=== PATIENT | female | born 1995 | race Caucasian/White ===

== ENCOUNTER → 2024-01-08 16:05 | Outpatient (REF) | payer OTHER, SELFPAY | LOC: RAD 16:05 | PROVIDERS: ATTENDING PHYSICIAN Obstetrics & Gynecology; FAMILY PHYSICIAN Family Medicine | DX: O26.851 Spotting complicating pregnancy, first trimester (principal) | CPT/HCPCS: 76801 ==

== ENCOUNTER 2024-01-18 06:34 | Day surgery (SDC) | payer OTHER, SELFPAY ==
[2024-01-18] VITALS (14 sets, daily range): BP systolic 76–119; BP diastolic 41–79; BMI 29.7
[2024-01-18 10:20] LABS: Glucose - Point of Care 81 mg/dl (70-99)
[2024-01-18] MEDS: VIBRAMYCIN 260 MG IV (10:38)
[2024-01-18] MEDS: NORMOSOL-R 1000 IV (10:38)
[2024-01-18] MEDS: OFIRMEV 100 IV (12:09)
== END 2024-01-18 14:05 | disposition home or self-care (01) ==
LOC: SDS 06:34
PROVIDERS: ATTENDING PHYSICIAN Obstetrics & Gynecology
DX: O02.1 Missed abortion (principal); Z3A.10 10 weeks gestation of pregnancy
CPT/HCPCS: 59820; 88305; 82962; 86850; 86900; 86901

== ENCOUNTER → 2024-01-21 14:22 | Day surgery (SDC) | payer OTHER, SELFPAY ==
[2024-01-21] VITALS (12 sets, daily range): BP systolic 108–129; BP diastolic 57–80; BMI 29.8
--- NOTE | 2024-01-21 08:49 | ED.GENMED ---
History of Present Illness
General
Chief Complaint: Fainting Sensation
Source: patient
Exam Limitations: none
Time Seen by Provider: 01/21/24 08:38
Nursing documentation reviewed up to this point in time: agreed with
Travel History
Have you had any contact with someone who has COVID-19?: No
Do you have any symptoms of coronavirus? Fever > 100 degrees, chills, cough, shortness of breath, sore throat, loss of taste or smell, muscle aches, or headache?: No
History of Present Illness
History of Present Illness:
28-year-old female -0-5-2 presenting to the emergency department with concerns of heavy vaginal bleeding starting this morning of just a few hours prior to arrival to the emergency department has noticed large clots and also feels lightheaded.
Had recent miscarriage and D&C 3 days ago. Denies issues until this morning. Has had some mild cramping to the pelvic region. Shortness of breath or vomiting. Claims that she has had a temperature of 99.5 as well.
Past History
Past History
ED Past Medical History: Asthma, Hypercholesterolemia, Other (ovarian cyst) and Other
ED Past Surgical History:
Social History
Tobacco: Former smoker
Alcohol: Occasional
Drug: None
Personal: Single
Living: other (Lives with her partner)
Employment: Employed (massage therapist)
Family History
Family History: Other (Contributory)
Review of Systems
Review of Systems
Allergies reviewed?: Yes
All Other Systems: ROS reviewed and negative except as documented in HPI and ROS
Phy Exam
Physical Exam
Physical Exam:
GENERAL: Alert , in no apparent distress
EYE: pupils equal and reactive
NECK: Supple, no significant adenopathy.
ENT: o/p clr, mmm.
CARDIAC: Regular rate and rhythm .
LUNGS: Clear breath sounds bilaterally, no acute respiratory distress, no wheezes/rales/rhonchi
ABDOMEN: Soft, without focal tenderness, no r/g, no cvat
NEUROLOGICAL: Alert and oriented, no focal neuro deficits
SKIN: Warm and dry, skin intact.
MUSCULOSKELETAL: No edema, well perfused.
PSYCH: Patient anxious
Course
Orders/Labs/Results
Orders:
Orders
01/21/24 08:38
EKG [Electrocardiogram (*1)] Urgent
Reason for Study: Syncope
01/21/24 08:39
EKG- Treatment ONCE
01/21/24 08:47
0.9% Sodium Chloride 1000 ml [Nss] 1,000 ml IV BOLUS
01/21/24 08:48
Cardiac Monitoring- Treatment ONCE
01/21/24 09:19
Complete Blood Count/With Diff Urgent
01/21/24 09:29
US Pelvis Only (non-obstetric) Urgent
Reason For Exam: bleeding cramping s/p d&c 3 days ago
01/21/24 Lunch
NPO
Allow oral meds: Yes
Allow clear liquids: Sips of Clears
Comment: sips of clears with oral meds only
01/21/24 11:35
Beta HCG Quantitative Urgent
Comprehensive Metabolic Panel Urgent
01/21/24 13:04
MetroNIDAZOLE 500 MG/100 ML [Flagyl 500 mg] 100 ml IV NOW
01/21/24 13:17
HYDROmorphone [Dilaudid] 0.25 mg IV PACU-Q5MPRN PRN
HYDROmorphone [Dilaudid] 0.5 mg IV PACU-Q5MPRN PRN
Meperidine [Demerol] 12.5 mg IV PACU-Q5MPRN PRN
Ondansetron Injectable [Zofran] 4 mg IV PACU-ONCEPRN PRN
Prochlorperazine [Compazine] 5 mg IV PACU-ONCEPRN PRN
Notify MD As Directed
Notify physician if: for SDS patients with known or suspected sleep obstructive sleep apnea, monitor in the
PACU.
Notify MD for any apneic/desaturation episodes
O2 Therapy [RESP] Urgent
Titrate/Wean O2 to maintain O2 sat greater than (%): 92
Special Instructions: -Provide supplemental oxygen to achieve O2 sat of 92% or greater.
-After 15 min, may wean O2 and discontinue if patient is able to maintain O2 sat of 92%
or greater during recovery period.
If patient is a discharge home, without oxygen therapy, notify anestheiologist if
unable to maintain O2 SAT of 92% or greater on room air for MD clearance.
01/21/24 13:30
Normosol (Mult Electrolytes) [Normosol-R] 1,000 ml IV PER PROTOCOL
01/21/24 13:33
Type And Crossmatch Urgent
01/21/24 13:40
Doxycycline Hyclate [Vibramycin] 200 mg 0.9% Sodium Chloride 250 ml [Nss] 250 ml IV NOW
01/21/24 13:47
Pneumatic Compression Sleeves As Directed
Type: Knee high
01/21/24 13:48
Admit Patient As Directed
Co-Sign Provider:
Level of Care: Observation services
Assign to:: LDRP
Physician / Group: Jelena Navarrete
Diagnosis: Retained products of conception, s/p SAB
Patient Condition: Good
Reason for Hospitalization: retained products of conception, D&C
Expected length of stay greater than two midnights?: No
ELOS- Estimated Length of Stay in days: 1
I certify the patient meets the requirements for IP care: No
ANESTHESIA CONSULT Routine
Consulting Provider: [facility]
Consult for:: Other reason
Was physician already notified: Yes
Reason for consult: anesthesia for D&C
Activity As Directed
Activity Level: Bathroom Privileges
INT (Intravenous Needle Therapy) As Directed
Vital Signs As Directed
Frequency: Per unit guidelines
Call for:: SBP >/= 160, DBP >/= 110, pulse > 120, temperature > 100.4 F
01/21/24 13:50
DX Deep Vein Thrombosis Video Routine
Abnormal Lab Results
01/21/24 01/21/24
09:19 11:35
RBC 3.66 L 10^6/uL
(4.20-5.40)
Hgb 11.7 L g/dL
(12.0-16.0)
Hct 32.7 L %
(37.0-47.0)
MCH 32.0 H pg
(27.0-31.0)
Lymphocytes % 18.1 L %
(20.5-51.1)
Chloride 109 H mmol/L
(98-107)
Creatinine 0.5 L mg/dL
(0.6-1.0)
Calcium 8.1 L mg/dl
(8.4-10.2)
Total Protein 5.8 L g/dl
(6.3-8.2)
Albumin 3.0 L g/dl
(3.5-5.0)
01/21/24 09:19
01/21/24 11:35
Vital Signs
Initial and Last Documented VS:
Initial Vital Signs
Temp Pulse Resp BP Pulse Ox
99.6 F 104 16 121/79 98
01/21/24 08:30 01/21/24 08:30 01/21/24 08:30 01/21/24 08:30 01/21/24 08:30
Last Documented Vital Signs
Temp Pulse Resp BP Pulse Ox
99.6 F 98 14 129/77 98
01/21/24 08:30 01/21/24 14:00 01/21/24 14:00 01/21/24 14:00 01/21/24 14:00
MDM/Problems Addressed
MDM/Problems Addressed:
28-year-old female presenting to the emergency department today with concerns of described heavy vaginal bleeding and clots this morning upon awakening contact her director of community education who recommended come to the ER. Had recent D&C 3 days ago. Has been
feeling lightheaded as well. On arrival patient mildly tachycardic otherwise vital signs normal. Temperature of 99.6.
Patient was found to have retained products of conception on ultrasound Case was immediately discussed with on-call BOWLING [employer]LEY MECHANIC who will come in to see the patient.
Labs without emergent features patient stable throughout ER stay stable for
Procedure at this time. Started on antibiotics typed and crossed.
*Critical Care Note
Total Time (30-74mins, 75-104mins- exclusive of procedures): Not Applicable
ED Attending Note
-
Portions of this chart may have been created with voice recognition software.� Occasional wrong word or��sound alike� substitutions may have occurred due to the inherent limitations of voice recognition software.
Discharge Plan
Departure
Patient Disposition: Home (Routine Discharge)
Date of Disposition: 01/21/24
Time of Disposition: 13:52
Admit to: OR
Patient with high blood pressure during this ER visit?: No
Condition: Good
Discharge Problem:
Retained products of conception after miscarriage
Prescriptions:
No Action
No Current Medications
0
Referrals:
NONE,* [Family Provider] -
Ritika Cash MD [Active] - Keep scheduled appt (if you do not have a scheduled appointment, please call the office to schedule an appointment in 1-2 weeks)
Stand Alone Forms: Same Day Services Discharge
Activity Restrictions/Additional Instructions:
No intercourse, nothing in the vagina for at least 2 weeks
Interventions
Interventions:
*Risk Screen - Suicide Last Done: 01/21/24 14:15
*General Assessment Last Done: 01/21/24 09:18
*Neglect/Abuse Screening Last Done: 01/21/24 09:18
ED- Fall Risk Assessment Last Done: 01/21/24 10:45
*ED COVID-19 Vaccine History Last Done: 01/21/24 08:30
*Nursing Disposition Last Done: 01/21/24 14:15
ED- Cardiac Assessment Last Done: 01/21/24 10:45
ED- Neurological Assessment Last Done: 01/21/24 10:45
[2024-01-21] MEDS: NSS 1000 IV (09:30)
[2024-01-21 09:48] LABS: % Basophils 0.3 % (0-2); % Eosinophils 1.4 % (0-6); % Immature Granulocytes 0.5 % (0-0.5); % Lymphocytes 18.1 % (20.5-51.1); % Monocytes 6.2 % (1.7-9.3); % Neutrophils 73.5 % (42.2-75.2); Absolute Eosinophils 0.1 10^3/uL (0-0.7); Absolute Lymphocytes 1.4 10^3/uL (1.2-3.4); Absolute Monocytes 0.5 10^3/uL (0.1-0.6); Absolute Neutrophils 5.9 10^3/uL (1.4-6.5); Hematocrit 32.7 % (37.0-47.0); Hemoglobin 11.7 g/dL (12.0-16.0); Mean Corp Hgb Conc. 35.8 g/dL (33.0-37.0); Mean Corpuscular Volume 89.3 fL (81.0-99.0); Mean Platelet Volume 9.9 fL (7.4-10.4); Nucleated Red Blood Cells % 0 %; Platelet Count 241 10^3/uL (130-400); Red Blood Cell Count 3.66 10^6/uL (4.20-5.40); Red Cell Dist. Width 12.5 % (11.5-14.5)
[2024-01-21 12:15] LABS: ALT (SGPT) 13 U/L (0-35); AST (SGOT) 15 U/L (14-36); Alkaline Phosphatase 56 U/L (38-126); Blood Urea Nitrogen 7 mg/dl (7-17); Calcium 8.1 mg/dl (8.4-10.2); Carbon Dioxide 23 mmol/L (22-30); Chloride 109 mmol/L (98-107); Estimated Creatinine Clearance > 125 ml/min; Glucose 85 mg/dl (70-99); Potassium 3.5 mmol/L (3.5-5.1); Sodium 139 mmol/L (135-145); Total Bilirubin 0.5 mg/dl (0.2-1.3); Total Protein 5.8 g/dl (6.3-8.2); eGFR > 60.00
[2024-01-21 12:38] LABS: Beta HCG Quantitative 825.36 mIU/ml
[2024-01-21] MEDS: FLAGYL 500 MG 100 IV (13:00)
[2024-01-21] MEDS: VIBRAMYCIN 270 MG IV (13:53)
--- NOTE | 2024-01-21 16:03 | W.IMMPOSTOP ---
Surgical Immed Post Op Note
-
Primary Surgeon: Jelena Navarrete DO
Assisting Surgeon: n/a
Pre-op Diagnosis: S/p D&E for Missed AB, suspected retained products of conception
Post-op Diagnosis: AURELIA
Procedure Performed: Suction D & E
Anesthesia Type: LMA
Specimen / Cultures: intrauterine contents
Estimated Blood Loss: 25ml
Complications: none
Operative Findings: 10wk uterus on EUA. Heterogeneous material and clot within uterine cavity on transabdominal US in the OR, all of which appeared to be removed with US-guided passage of the suction curette. Thin homogenous ES 4mm at end of case.
Total amount of clot/tissue removed was small. Hemostasis noted at end of case.
== END | disposition home or self-care (01) ==
LOC: EMR 08:22 → PACU 14:22
PROVIDERS: Physician Assistant; ATTENDING PHYSICIAN Obstetrics & Gynecology; CONSULT PHYSICIAN Anesthesiology; CONSULT PHYSICIAN Nurse Anesthetist, Certified Registered; CONSULT PHYSICIAN Registered Nurse; CONSULT PHYSICIAN Specialist; CONSULT PHYSICIAN Student in an Organized Health Care Education/Training Program; EMERGENCY PHYSICIAN Emergency Medicine
DX: O03.4 Incomplete spontaneous abortion without complication (principal)
CPT/HCPCS: 59812; 88305; 76856; 76998; 80053; 84702; 85025; 86850; 86900; 86901; 93005; 96361; 96365; 96367; 99285

== ENCOUNTER 2024-01-29 11:48 | Emergency (ER) | payer OTHER, SELFPAY ==
[2024-01-29 12:02] VITALS: BP 118/81
--- NOTE | 2024-01-29 14:23 | ED.GENMED ---
History of Present Illness
General
Chief Complaint: Post Operative Problem(s)
Source: patient
Exam Limitations: none
Time Seen by Provider: 01/29/24 13:25
Travel History
Have you had any contact with someone who has COVID-19?: No
Do you have any symptoms of coronavirus? Fever > 100 degrees, chills, cough, shortness of breath, sore throat, loss of taste or smell, muscle aches, or headache?: No
History of Present Illness
History of Present Illness:
28-year-old female presents with persistent left calf cramping intermittent chest pain lightheadedness following her second D&C for spontaneous . Second D&C was performed on January 21. 2 days following the procedure she felt well however
since then has declined. She was short of breath walking her son down the sidewalk with a stroller with typically she would not struggle with this. She notes intermittent chest pain the last several seconds and goes away. Pain is not pleuritic.
She denies any shortness of breath at rest. No other complaints at this time
Past History
Past History
ED Past Medical History: Asthma, Hypercholesterolemia, Other (ovarian cyst) and Other
ED Past Surgical History:
Social History
Tobacco: Former smoker
Alcohol: Occasional
Drug: None
Personal: Single
Living: other (Lives with her partner)
Employment: Employed (massage therapist)
Family History
Family History: Other (Contributory)
Phy Exam
Physical Exam
Physical Exam:
General: Well-appearing female no acute respiratory distress
HEENT: Normocephalic atraumatic neck is supple
Heart: Regular rate and rhythm no murmur
Lungs: Clear to auscultation bilaterally no wheezing
Abdomen: Soft nontender nondistended
Extremities: No cyanosis or edema no calf tenderness to palpation
Skin is warm no rash
Course
Orders/Labs/Results
Orders:
Orders
01/29/24 12:03
Venous Doppler Lwr Ext Left [US Periph Venous LOWER Ext LT] Stat
Comment:
Reason For Exam: r/o DVT
01/29/24 13:57
Electrocardiogram (*1) Urgent
Reason for Study: Chest Pain
EKG- Treatment ONCE
01/29/24 14:54
Complete Blood Count/With Diff Urgent
Comprehensive Metabolic Panel Urgent
Ferritin Urgent
Comment: ADD ON
Magnesium Urgent
Total Iron Binding Urgent
Comment: ADD ON
Troponin I Urgent
Urinalysis Reflex To Culture Urgent
Date Specimen was Collected: 01/29/24
Time Specimen was Collected: 14:42
Urine Microscopic Reflex Cult Urgent
01/29/24 15:13
Add On- LAB Urgent
Tests Added?: ferritin, iron binding capacity
Abnormal Lab Results
01/29/24
14:54
RBC 3.94 L 10^6/uL
(4.20-5.40)
Hct 35.3 L %
(37.0-47.0)
MCH 31.2 H pg
(27.0-31.0)
Creatinine 0.5 L mg/dL
(0.6-1.0)
Leukocyte Esterase Rfl Trace A
(Negative)
01/29/24 14:54
01/29/24 14:54
Vital Signs
Initial and Last Documented VS:
Initial Vital Signs
Temp Pulse Resp BP Pulse Ox
98.8 F 82 20 118/81 100
01/29/24 12:02 01/29/24 12:02 01/29/24 12:02 01/29/24 12:02 01/29/24 12:02
Last Documented Vital Signs
Temp Pulse Resp BP Pulse Ox
98.8 F 86 14 109/67 98
01/29/24 12:02 01/29/24 16:15 01/29/24 16:15 01/29/24 16:00 01/29/24 16:15
MDM/Problems Addressed
Differential Diagnosis Includes:
Multiple complaints status post second D&C for spontaneous . Ultrasound of left leg was ordered through triage which I personally reviewed and is negative for DVT
Check EKG and labs. Chest pain is atypical not sustained. Unlikely to be PE secondary to description of symptoms.
*Critical Care Note
Total Time (30-74mins, 75-104mins- exclusive of procedures): Not Applicable
Update Note
Update Note:
Labs reviewed without significant finding. Troponin undetectable. Hemoglobin 12.4. Patient has no chest pain upon reassessment vital signs remained stable. Urinalysis negative. Hemoglobin is improved from last visit. Patient did request
ferritin studies to be done were performed and are normal. Recommended follow-up with DIRECTOR EXECUTIVE COMMUNICATIONS. No indication for admission to hospital.
ED Attending Note
-
Portions of this chart may have been created with voice recognition software.� Occasional wrong word or��sound alike� substitutions may have occurred due to the inherent limitations of voice recognition software.
Discharge Plan
Departure
Patient Disposition: Home (Routine Discharge)
Date of Disposition: 01/29/24
Time of Disposition: 16:24
Patient with high blood pressure during this ER visit?: No
Discharge Problem:
Fatigue
Prescriptions:
No Action
acetaminophen 325 mg Tablet
650 mg PO SDS-Q4HPRN PRN (Reason: mild pain) Qty: 0 0RF
ibuprofen 600 mg tablet
600 mg PO Q6H MDD 2400mg PRN (Reason: fever or pain) Qty: 20 0RF
Rx Instructions:
Do not take first dose prior to 10pm on 01/21/2024
doxycycline hyclate 100 mg capsule
100 mg PO BID Qty: 6 0RF
Referrals:
Bella Dial MD [Family Provider] -
Activity Restrictions/Additional Instructions:
Stay hydrated. Eat a good diet. Please follow-up with your DIRECTOR EXECUTIVE COMMUNICATIONS. Return for worsening symptoms otherwise
Interventions
Interventions:
*Risk Screen - Suicide Last Done: 01/29/24 11:55
*General Assessment Last Done: 01/29/24 11:55
*Neglect/Abuse Screening Last Done: 01/29/24 11:55
*ED COVID-19 Vaccine History Last Done: 01/29/24 14:57
ED-Skin Assessment Last Done: 01/29/24 15:08
[2024-01-29 14:57] VITALS: BMI 29.7
[2024-01-29 15:01] VITALS: BP 103/68
[2024-01-29 15:01] LABS: % Basophils 0.4 % (0-2); % Eosinophils 2.7 % (0-6); % Immature Granulocytes 0.1 % (0-0.5); % Lymphocytes 29.5 % (20.5-51.1); % Monocytes 5.3 % (1.7-9.3); Absolute Eosinophils 0.2 10^3/uL (0-0.7); Absolute Lymphocytes 2.2 10^3/uL (1.2-3.4); Absolute Monocytes 0.4 10^3/uL (0.1-0.6); Absolute Neutrophils 4.6 10^3/uL (1.4-6.5); Hematocrit 35.3 % (37.0-47.0); Hemoglobin 12.3 g/dL (12.0-16.0); Mean Corp Hgb Conc. 34.8 g/dL (33.0-37.0); Mean Corpuscular Hgb 31.2 pg (27.0-31.0); Mean Corpuscular Volume 89.6 fL (81.0-99.0); Mean Platelet Volume 9.2 fL (7.4-10.4); Nucleated Red Blood Cells % 0 %; Platelet Count 359 10^3/uL (130-400); Red Blood Cell Count 3.94 10^6/uL (4.20-5.40); Red Cell Dist. Width 12.3 % (11.5-14.5); White Blood Cell Count 7.4 10^3/uL (4.8-10.8)
[2024-01-29 15:10] LABS: Urine Albumin Negative (Neg - Trace); Urine Bilirubin Negative (Negative); Urine Character Clear (Clear); Urine Color Yellow; Urine Glucose Negative (Negative); Urine Ketone Negative (Negative); Urine Leukocyte Trace (Negative); Urine Nitrite Negative (Negative); Urine Occult Blood Negative (Negative); Urine Urobilinogen Negative (Neg - 1+); Urine pH 6.5 (5.0-9.0)
[2024-01-29 15:22] LABS: ALT (SGPT) 21 U/L (0-35); AST (SGOT) 26 U/L (14-36); Albumin 4.6 g/dl (3.5-5.0); Alkaline Phosphatase 69 U/L (38-126); Blood Urea Nitrogen 14 mg/dl (7-17); Calcium 9.9 mg/dl (8.4-10.2); Carbon Dioxide 24 mmol/L (22-30); Chloride 104 mmol/L (98-107); Estimated Creatinine Clearance > 125 ml/min; Glucose 87 mg/dl (70-99); Magnesium 2.2 mg/dl (1.6-2.3); Potassium 4.1 mmol/L (3.5-5.1); Sodium 138 mmol/L (135-145); Total Bilirubin 0.6 mg/dl (0.2-1.3); Total Protein 7.3 g/dl (6.3-8.2); eGFR > 60.00
[2024-01-29 15:24] LABS: Urine Red Blood Cell 0-2 /HPF (0-2); Urine Squamous Cell 0-2 /LPF (Few); Urine White Cell 0-2 /HPF (0-5)
[2024-01-29 15:26] LABS: Troponin I < 0.012 ng/ml
[2024-01-29 15:43] LABS: Total Iron Binding Capacity 373 ug/dl (265-497)
[2024-01-29 16:00] VITALS: BP 109/67
[2024-01-29 16:07] LABS: Ferritin 15.7 ng/ml (6.24-137)
== END 2024-01-29 16:32 | disposition home or self-care (01) ==
LOC: EMR 11:48
PROVIDERS: Physician Assistant; EMERGENCY PHYSICIAN Emergency Medicine; FAMILY PHYSICIAN Emergency Medicine
DX: R53.83 Other fatigue (principal); R07.89 Other chest pain; Z87.891 Personal history of nicotine dependence
CPT/HCPCS: 99285; 71046; 80053; 81003; 81015; 82728; 83550; 83735; 84484; 85025; 93005; 93971

== ENCOUNTER → 2024-01-29 18:06 | Outpatient (REF) | payer OTHER, SELFPAY | LOC: RAD 18:06 | PROVIDERS: ATTENDING PHYSICIAN Emergency Medicine | DX: Z87.59 Personal history of other complications of pregnancy, childbirth and the puerperium (principal); R53.83 Other fatigue; R06.09 Other forms of dyspnea; R42 Dizziness and giddiness | CPT/HCPCS: 71046 ==

== ENCOUNTER → 2024-01-30 13:50 | Outpatient (REF) | payer OTHER, SELFPAY | LOC: RAD 13:50 | PROVIDERS: ATTENDING PHYSICIAN Emergency Medicine | DX: M79.604 Pain in right leg (principal) | CPT/HCPCS: 93971 ==

== ENCOUNTER → 2024-08-07 10:24 | Outpatient (REF) | payer OTHER, SELFPAY | LOC: HWRAD 10:24 | PROVIDERS: ATTENDING PHYSICIAN Nurse Practitioner Family | DX: R22.1 Localized swelling, mass and lump, neck (principal); R76.8 Other specified abnormal immunological findings in serum | CPT/HCPCS: 76536; 76705 ==

== ENCOUNTER 2024-09-02 11:37 | Emergency (ER) | payer OTHER, SELFPAY ==
[2024-09-02 11:41] VITALS: BP 132/84
[2024-09-02 11:58] LABS: % Basophils 0.3 % (0-2); % Eosinophils 3.2 % (0-6); % Immature Granulocytes 0.3 % (0-0.5); % Lymphocytes 24.2 % (20.5-51.1); % Monocytes 5.8 % (1.7-9.3); % Neutrophils 66.2 % (42.2-75.2); Absolute Eosinophils 0.2 10^3/uL (0-0.7); Absolute Lymphocytes 1.5 10^3/uL (1.2-3.4); Absolute Monocytes 0.4 10^3/uL (0.1-0.6); Absolute Neutrophils 4.1 10^3/uL (1.4-6.5); Hematocrit 39.9 % (37.0-47.0); Hemoglobin 13.4 g/dL (12.0-16.0); Mean Corp Hgb Conc. 33.6 g/dL (33.0-37.0); Mean Corpuscular Hgb 28.9 pg (27.0-31.0); Mean Platelet Volume 9.7 fL (7.4-10.4); Nucleated Red Blood Cells % 0 %; Platelet Count 278 10^3/uL (130-400); Red Blood Cell Count 4.64 10^6/uL (4.20-5.40); Red Cell Dist. Width 12.4 % (11.5-14.5); White Blood Cell Count 6.2 10^3/uL (4.8-10.8)
[2024-09-02 12:06] VITALS: BMI 32.3
[2024-09-02 12:09] LABS: Urine Albumin Negative (Neg - Trace); Urine Bilirubin Negative (Negative); Urine Character Clear (Clear); Urine Color Yellow; Urine Glucose Negative (Negative); Urine Ketone Negative (Negative); Urine Leukocyte Negative (Negative); Urine Nitrite Negative (Negative); Urine Occult Blood Negative (Negative); Urine Urobilinogen Negative (Neg - 1+)
[2024-09-02 12:36] LABS: HCG, Urine Qualitative Screen Negative
[2024-09-02 12:43] LABS: Blood Urea Nitrogen 8 mg/dl (7-17); Calcium 9.1 mg/dl (8.4-10.2); Carbon Dioxide 22 mmol/L (22-30); Chloride 105 mmol/L (98-107); Estimated Creatinine Clearance > 125 ml/min; Glucose 125 mg/dl (70-99); Sodium 140 mmol/L (135-145); eGFR > 60.00
--- NOTE | 2024-09-02 13:02 | ED.GENMED ---
History of Present Illness
<Marcella Eldridge MD, Resident - Last Filed: 09/02/24 13:20>
General
Chief Complaint: Flank Pain
Source: patient
Exam Limitations: none
Time Seen by Provider: 09/02/24 11:54
History of Present Illness
History of Present Illness:
patient is a 29-year-old healthy female who comes in with left-sided lower back pain that started last night. 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 She mentions that pain started last night after coming back
from work. Pain gets worse with bending. Does not radiate. Does not report any urinary symptoms. No nausea or vomiting or fever. Does not mention any unusual vaginal discharge; last menstrual period was 20 August. Denies abdominal pain.
If applicable-neuro sx onset
Onset of symptoms known: Yes
Date of onset of symptoms: 09/01/24
Time of onset of symptoms: 17:00
Past History
<Marcella Eldridge MD, Resident - Last Filed: 09/02/24 13:20>
Past History
ED Past Medical History: Asthma, Hypercholesterolemia, Other (ovarian cyst) and Other
ED Past Surgical History:
Social History
Tobacco: Former smoker
Alcohol: Occasional
Drug: None
Personal:
Living: other (Lives with her partner)
Employment: Employed (massage therapist)
Family History
Family History: Other (Mom has a history of kidney stones)
Review of Systems
<Marcella Eldridge MD, Resident - Last Filed: 09/02/24 13:20>
Review of Systems
Allergies reviewed?: Yes
All Other Systems: ROS reviewed and negative except as documented in HPI and ROS
Phy Exam
<Marcella Eldridge MD, Resident - Last Filed: 09/02/24 13:20>
General Physical Exam
General Presentation: well appearing and no apparent distress
General Mental: alert
General Hydration: appears well hydrated
Cardiovascular Exam
Cardiovascular Exam: regular rate/rhythm and no edema
Pulmonary Exam
Pulmonary Exam: lungs clear
Gastrointestinal Exam
Gastrointestinal Exam: normal bowel sounds, non tender, soft and non distended
Genitourinary Exam Female
Exam Female: no bleeding and no vaginal discharge
Neurological Exam
Neurological Exam: alert, oriented x3 and no motor deficits
Musculoskeletal Exam
Musculoskeletal Exam: full ROM, back pain (Mild left lower back tenderness), no edema and other (No CVA tenderness)
Course
<Marcella Eldridge MD, Resident - Last Filed: 09/02/24 13:20>
Orders/Labs/Results
Orders:
Orders
09/02/24 11:45
Test Result ONCE
09/02/24 11:50
Complete Blood Count/With Diff Urgent
09/02/24 11:59
Basic Metabolic Panel Urgent
HCG, Urine Qualitative Screen Urgent
Date Specimen was Collected: 09/02/24
Time Specimen was Collected: 11:58
Comment: ADD ON
Urinalysis Reflex To Culture Urgent
Date Specimen was Collected: 09/02/24
Time Specimen was Collected: 11:58
09/02/24 12:07
Add On- LAB Urgent
Comments:: urine and sst in lab
Tests Added?: urine hcg qual; bmp sans K on hemolyzed specimen from triage.
Abnormal Lab Results
09/02/24
11:59
Glucose 125 H mg/dl
(70-99)
09/02/24 11:50
09/02/24 11:59
Vital Signs
Initial and Last Documented VS:
Initial Vital Signs
Temp Pulse Resp BP Pulse Ox
99.7 F 88 16 132/84 97
09/02/24 11:41 09/02/24 11:41 09/02/24 11:41 09/02/24 11:41 09/02/24 11:41
Last Documented Vital Signs
Temp Pulse Resp BP Pulse Ox
99.7 F 88 16 132/84 97
09/02/24 11:41 09/02/24 11:41 09/02/24 11:41 09/02/24 11:41 09/02/24 11:41
Oumarlt;Shady Baumann, DO - Last Filed: 09/02/24 13:26>
Orders/Labs/Results
Orders:
Orders
09/02/24 11:45
Test Result ONCE
09/02/24 11:50
Complete Blood Count/With Diff Urgent
09/02/24 11:59
Basic Metabolic Panel Urgent
HCG, Urine Qualitative Screen Urgent
Date Specimen was Collected: 09/02/24
Time Specimen was Collected: 11:58
Comment: ADD ON
Urinalysis Reflex To Culture Urgent
Date Specimen was Collected: 09/02/24
Time Specimen was Collected: 11:58
09/02/24 12:07
Add On- LAB Urgent
Comments:: urine and sst in lab
Tests Added?: urine hcg qual; bmp sans K on hemolyzed specimen from triage.
Abnormal Lab Results
09/02/24
11:59
Glucose 125 H mg/dl
(70-99)
09/02/24 11:50
09/02/24 11:59
Vital Signs
Initial and Last Documented VS:
Initial Vital Signs
Temp Pulse Resp BP Pulse Ox
99.7 F 88 16 132/84 97
09/02/24 11:41 09/02/24 11:41 09/02/24 11:41 09/02/24 11:41 09/02/24 11:41
Last Documented Vital Signs
Temp Pulse Resp BP Pulse Ox
99.7 F 88 16 132/84 97
09/02/24 11:41 09/02/24 11:41 09/02/24 11:41 09/02/24 11:41 09/02/24 11:41
<Marcella Eldridge MD, Resident - Last Filed: 09/02/24 13:20>
MDM/Problems Addressed
Differential Diagnosis Includes:
Nephrolithiasis, Musculoskeletal pain, , Ruptured ovarian cyst
Chronic conditions affecting care:
None
<Marcella Eldridge MD, Resident - Last Filed: 09/02/24 13:20>
*Critical Care Note
Total Time (30-74mins, 75-104mins- exclusive of procedures): 30
ED Attending Note
<Marcella Eldridge MD, Resident - Last Filed: 09/02/24 13:20>
-
Portions of this chart may have been created with voice recognition software.� Occasional wrong word or��sound alike� substitutions may have occurred due to the inherent limitations of voice recognition software.
<Shady Baumann, DO - Last Filed: 09/02/24 13:26>
ED Attending Note
Patient seen and examined by attending physician: Yes
I performed a history and physical exam of patient and discussed management with resident, I reviewed resident's note and agree with documented findings and plan of care.: Yes
ED Attending Note:
I agree with Dr. Eldridge'n note
General: Awake, Alert, Oriented X3. No acute distress.
Vitals: unremarkable
Head: Atraumatic
Eyes: Pupils equal, EOMI
Throat: Airway intact, no exudates
Neck: Trachea midline
Lungs: Clear and equal b/l
Heart: Regular rate, no murmurs
Abd: Soft, Nontender, No pulsatile mass
Back: mild left paraspinal muscular tenderness. NO cva tenderness
Neuro: nonfocal
Skin: Warm, dry, no rash
Extremities: pulses equal b/l, no edema
Discharge Plan
Departure
Patient Disposition: Home (Routine Discharge)
Date of Disposition: 09/02/24
Time of Disposition: 13:24
Patient with high blood pressure during this ER visit?: No
Condition: Good
Discharge Problem:
Low back pain
Instructions: Back Stretches Standing or Seated, Low Back Pain ED
Prescriptions:
No Action
acetaminophen 325 mg Tablet
650 mg PO SDS-Q4HPRN PRN (Reason: mild pain) Qty: 0 0RF
ibuprofen 600 mg tablet
600 mg PO Q6H MDD 2400mg PRN (Reason: fever or pain) Qty: 20 0RF
Rx Instructions:
Do not take first dose prior to 10pm on 01/21/2024
doxycycline hyclate 100 mg capsule
100 mg PO BID Qty: 6 0RF
Referrals:
Bella Dial MD [Family Provider] -
Interventions
Interventions:
*Neglect/Abuse Screening Last Done: 09/02/24 12:05
ED-Female Genitourinary Assessment Last Done: 09/02/24 12:06
Discharge Date and Time
Print Language: MONTENEGR[place]
== END 2024-09-02 13:33 | disposition home or self-care (01) ==
LOC: EMR 11:37
PROVIDERS: EMERGENCY PHYSICIAN Emergency Medicine; FAMILY PHYSICIAN Emergency Medicine
DX: M54.50 Low back pain, unspecified (principal); J45.909 Unspecified asthma, uncomplicated; E78.00 Pure hypercholesterolemia, unspecified; N83.209 Unspecified ovarian cyst, unspecified side; Z91.040 Latex allergy status; Z88.8 Allergy status to other drugs, medicaments and biological substances; Z91.048 Other nonmedicinal substance allergy status; Z87.891 Personal history of nicotine dependence
CPT/HCPCS: 99283; 80048; 81003; 81025; 85025

== ENCOUNTER → 2024-09-04 15:31 | Outpatient (REF) | payer OTHER, SELFPAY | LOC: RAD 15:31 | PROVIDERS: ATTENDING PHYSICIAN Family Medicine | DX: R10.9 Unspecified abdominal pain (principal) | CPT/HCPCS: 74018 ==

== ENCOUNTER 2024-09-06 12:32 | Emergency (ER) | payer OTHER, SELFPAY ==
[2024-09-06 12:51] VITALS: BP 137/83
--- NOTE | 2024-09-06 12:51 | ED.GENMED ---
ED Provider Triage
<Jeramy Mitchell PA-C - Last Filed: 09/06/24 12:56>
-
Patient seen by provider in Triage?: Seen in Triage
Attestation: A medical screening examination has been initiated by a qualified medical provider. Based on the assessment performed at this time, it has been determined that an emergent medical condition may exist and the patient has been informed
that further medical evaluation and possible additional diagnostic testing may be needed.
HPI: 29-year-old female presenting back to the emergency department after being evaluated here earlier in the for fevers and flank pain, noting still having symptoms. She also notes in the right lower part of her pelvic area she had a cyst develop
that she states drained some pus earlier in the week. Patient not sure if this is the cause of symptoms. States did not take anything for her fever prior to arrival. She otherwise is well-appearing in no acute distress. Labs ordered. Patient
sent back to the waiting room as she is currently stable.
GENERAL: Alert , in no apparent distress
EYE: No visual abnormalities.
NECK: Trachea midline
ENT: No visible abnormalities.
LUNGS: No acute respiratory distress
NEUROLOGICAL: Alert and oriented
SKIN: Skin intact. No visible changes.
MUSCULOSKELETAL: Moving extremities normally
PSYCH: Normal and appropriate interaction.
This is a medical evaluation conducted in person to initiate diagnostic evaluation and provide initial therapeutics. Please see further documentation by the treating clinician.
History of Present Illness
<Jeramy Mitchell PA-C - Last Filed: 09/06/24 12:56>
General
Chief Complaint: Fever
Time Seen by Provider: 09/06/24 15:44
<Annamarie Cervantes PA-C - Last Filed: 09/06/24 22:53>
General
Source: patient
Exam Limitations: none
Nursing documentation reviewed up to this point in time: agreed with
History of Present Illness
History of Present Illness:
pt is a29 y/o F
with h/o GERD, asthma
here with 5 days of symptoms of fatigue, myalgias, low grade temp 100.4 last this morning, L sided now R sided back pain
was here 4 days ago for same
had labs, urine which were normal
pt was told she probably had virus or msk back pain
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
she has not had any infectious sypmtoms like cough, cold, sore throat, headache, rash
she did have a small lump in her pubic hair which was a folliculitils which ruptured and drained and is now better
she has not had any known recent tick bites
pt says 1 mo ago she had lymphadenopathy and felt fatigued; she had EBV panel that came back high but her pcp did not think she had active mono infection
the ADILENE got btter (right neck) and she was well until 4 days ago
she is tearful saying that she nkows something is wrong and she is being misdiagnosed and mistreated
she has not had focal weakness, joint swelling, neck stiffness, vision changes, balance changes, diarrhea, pelvic symptoms
Past History
<Jeramy Mitchell PA-C - Last Filed: 09/06/24 12:56>
Past History
ED Past Medical History: Asthma, Hypercholesterolemia, Other (ovarian cyst) and Other
ED Past Surgical History:
Social History
Tobacco: Former smoker
Alcohol: Occasional
Drug: None
Personal:
Living: other (Lives with her partner)
Employment: Employed (massage therapist)
Family History
Family History: Other (Mom has a history of kidney stones)
Review of Systems
<Annamarie Cervantes PA-C - Last Filed: 09/06/24 22:53>
Review of Systems
Allergies reviewed?: Yes
All Other Systems: Not applicable
Phy Exam
<Annamarie Cervantes PA-C - Last Filed: 09/06/24 22:53>
Physical Exam
Physical Exam:
GENERAL: Alert , in no apparent distress
EYE: pupils equal and reactive
NECK: Supple, no meningismus
no ADILENE
ENT: o/p clr, mmm.
CARDIAC: Regular rate and rhythm .
LUNGS: Clear breath sounds bilaterally, no acute respiratory distress, no wheezes/rales/rhonchi
ABDOMEN: Soft, without focal tenderness, no r/g, no cvat, normal bowel sounds
NEUROLOGICAL: Alert and oriented, no focal neuro deficits, full ROM
SKIN: Warm and dry, skin intact.
fmall folicluitis pustule, open, ,notnender, not indurated, not draiing right pubic region; no cellulitis
MUSCULOSKELETAL: No edema, well perfused. neg claudia's sign
PSYCH: Normal and appropriate interaction.
Course
<Jeramy Mitchell PA-C - Last Filed: 09/06/24 12:56>
Orders/Labs/Results
Orders:
Orders
09/06/24 12:51
Test Result ONCE
09/06/24 13:02
C-Reactive Protein Urgent
Comment: ADD ON
Complete Blood Count/With Diff Urgent
Comprehensive Metabolic Panel Urgent
Creatine Phosphokinase Urgent
Comment: ADD ON
Erythrocyte Sed Rate Urgent
Comment: ADD ON
HCG, Serum Qualitative Screen Urgent
Monotest Urgent
Comment: ADD ON
Urinalysis Reflex To Culture Urgent
Date Specimen was Collected: 09/06/24
Time Specimen was Collected: 12:51
09/06/24 16:18
Add On- LAB Urgent
Tests Added?: mono, ebv panel, lyme, cpk, esr, crp
CT Abd/pel Without Iv Or Oral Urgent
Comment:
Reason For Exam: b/l flank pain
0.9% Sodium Chloride 1000 ml [Nss] 1,000 ml IV BOLUS
Ketorolac [Toradol] 30 mg IV NOW STA
09/06/24 16:48
Blood Culture Urgent
AARON Source: Blood/Venous
Specimen Description:
09/06/24 16:50
Ryan-Martinez Virus Ab Panel I [S] Urgent
Comment: COLLECT. NOT ENOUGH SPECIMEN IN LAB.
Lyme Progressive Urgent
Comment: COLLECT. NOT ENOUGH SPECIMEN IN LAB.
09/06/24 17:00
Blood Culture Urgent
AARON Source: Blood/Venous
Specimen Description:
09/06/24 13:02
09/06/24 13:02
Vital Signs
Initial and Last Documented VS:
Initial Vital Signs
Temp Pulse Resp BP Pulse Ox
98.3 F 90 16 137/83 98
09/06/24 12:51 09/06/24 12:51 09/06/24 12:51 09/06/24 12:51 09/06/24 12:51
Last Documented Vital Signs
Temp Pulse Resp BP Pulse Ox
98.8 F 92 16 124/68 100
09/06/24 15:00 09/06/24 18:33 09/06/24 18:33 09/06/24 18:33 09/06/24 18:33
<Annamarie Cervantes PA-C - Last Filed: 09/06/24 22:53>
Orders/Labs/Results
Orders:
Orders
09/06/24 12:51
Test Result ONCE
09/06/24 13:02
C-Reactive Protein Urgent
Comment: ADD ON
Complete Blood Count/With Diff Urgent
Comprehensive Metabolic Panel Urgent
Creatine Phosphokinase Urgent
Comment: ADD ON
Erythrocyte Sed Rate Urgent
Comment: ADD ON
HCG, Serum Qualitative Screen Urgent
Monotest Urgent
Comment: ADD ON
Urinalysis Reflex To Culture Urgent
Date Specimen was Collected: 09/06/24
Time Specimen was Collected: 12:51
09/06/24 16:18
Add On- LAB Urgent
Tests Added?: mono, ebv panel, lyme, cpk, esr, crp
CT Abd/pel Without Iv Or Oral Urgent
Comment:
Reason For Exam: b/l flank pain
0.9% Sodium Chloride 1000 ml [Nss] 1,000 ml IV BOLUS
Ketorolac [Toradol] 30 mg IV NOW STA
09/06/24 16:48
Blood Culture Urgent
AARON Source: Blood/Venous
Specimen Description:
09/06/24 16:50
Ryan-Martinez Virus Ab Panel I [S] Urgent
Comment: COLLECT. NOT ENOUGH SPECIMEN IN LAB.
Lyme Progressive Urgent
Comment: COLLECT. NOT ENOUGH SPECIMEN IN LAB.
09/06/24 17:00
Blood Culture Urgent
AARON Source: Blood/Venous
Specimen Description:
09/06/24 13:02
09/06/24 13:02
Vital Signs
Initial and Last Documented VS:
Initial Vital Signs
Temp Pulse Resp BP Pulse Ox
98.3 F 90 16 137/83 98
09/06/24 12:51 09/06/24 12:51 09/06/24 12:51 09/06/24 12:51 09/06/24 12:51
Last Documented Vital Signs
Temp Pulse Resp BP Pulse Ox
98.8 F 92 16 124/68 100
09/06/24 15:00 09/06/24 18:33 09/06/24 18:33 09/06/24 18:33 09/06/24 18:33
<Annamarie Cervantes PA-C - Last Filed: 09/06/24 22:53>
MDM/Problems Addressed
Differential Diagnosis Includes:
viral syndrome, msk bakc pain, kidney stone; chronic pain syndome
MDM/Problems Addressed:
29 y/o F with 5 days of subjective/reported fevers 100.4 t max, myalgias, fatigue
L back pain and now R back pain
is convinced she has an infection
was here a few days ago and had urine an dlabs which were reported normal
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
she says she knows something is wrong
she apparently had + mono testing 1 mo ago but then was told it was reactive from covid and not truly mono
her exxam is unremarkable other than lateral back pain worse with changing positions; no red flag symtoms
no ADILENE
no rash
no joint swelling
pts repeated labs and urine were also negative today
she was insistent on more testing
and cousneled on ris/benefit of ct imaging of her abdomen/pelvis
it was negative other than adrenal adenoma
pt made aware of this findings
reassuring crp/esr
blood cultures x2 pending
mono neg
lyme pending
f/u with pcp
<Annamarie Cervantes PA-C - Last Filed: 09/06/24 22:53>
*Critical Care Note
Total Time (30-74mins, 75-104mins- exclusive of procedures): Not Applicable
ED Attending Note
<Jeramy Mitchell PA-C - Last Filed: 09/06/24 12:56>
-
Portions of this chart may have been created with voice recognition software.� Occasional wrong word or��sound alike� substitutions may have occurred due to the inherent limitations of voice recognition software.
Discharge Plan
Departure
Patient Disposition: Home (Routine Discharge)
Date of Disposition: 09/06/24
Time of Disposition: 18:03
Patient with high blood pressure during this ER visit?: No
Condition: Fair
Covid-19: Not Applicable
Discharge Problem:
Fatigue, Myalgia
Instructions: Viral Syndrome (DC)
Prescriptions:
No Action
acetaminophen 325 mg Tablet
650 mg PO SDS-Q4HPRN PRN (Reason: mild pain) Qty: 0 0RF
ibuprofen 600 mg tablet
600 mg PO Q6H MDD 2400mg PRN (Reason: fever or pain) Qty: 20 0RF
Rx Instructions:
Do not take first dose prior to 10pm on 01/21/2024
doxycycline hyclate 100 mg capsule
100 mg PO BID Qty: 6 0RF
Referrals:
Bella Dial MD [Family Provider] - Follow up in 5-7 days
Activity Restrictions/Additional Instructions:
WE ARE NOT SURE THE CAUSE OF YOUR SYPMTOMS
BUT YOUR WORK UP IS REASSURING THAT THERE IS NO LIFE THREATENING PROCESS
YOU HAD BLOOD CULTURES AND LYME TEST THAT ARE PENDING
WE WILL CALL YOU IF POSITIVE
IN MEANTIME, FLUIDS, IBUPROFEN FOR PAIN EVERY 8HOURS NEEDED
[facility]LOW UP WITH [facility] DOCTOR NEXT WEEK
RETURN FOR ANY CONCERS.
Interventions
Interventions:
*Risk Screen - Suicide Last Done: 09/06/24 12:51
*General Assessment Last Done: 09/06/24 12:51
*Neglect/Abuse Screening Last Done: 09/06/24 12:51
*ED COVID-19 Vaccine History Last Done: 09/06/24 17:08
*Nursing Disposition Last Done: 09/06/24 18:33
ED- Neurological Assessment Last Done: 09/06/24 17:00
ED-Skin Assessment Last Done: 09/06/24 17:00
Discharge Date and Time
Discharge Date/Time: 09/06/24 18:35
Print Language: OMANI
[2024-09-06 13:14] LABS: % Basophils 0.4 % (0-2); % Eosinophils 2.3 % (0-6); % Immature Granulocytes 0.3 % (0-0.5); % Lymphocytes 23.4 % (20.5-51.1); % Monocytes 5.7 % (1.7-9.3); % Neutrophils 67.9 % (42.2-75.2); Absolute Eosinophils 0.2 10^3/uL (0-0.7); Absolute Lymphocytes 1.8 10^3/uL (1.2-3.4); Absolute Monocytes 0.5 10^3/uL (0.1-0.6); Absolute Neutrophils 5.3 10^3/uL (1.4-6.5); Hematocrit 40.6 % (37.0-47.0); Hemoglobin 13.9 g/dL (12.0-16.0); Mean Corp Hgb Conc. 34.2 g/dL (33.0-37.0); Mean Corpuscular Hgb 29.3 pg (27.0-31.0); Mean Corpuscular Volume 85.7 fL (81.0-99.0); Mean Platelet Volume 9.3 fL (7.4-10.4); Nucleated Red Blood Cells % 0 %; Platelet Count 309 10^3/uL (130-400); Red Blood Cell Count 4.74 10^6/uL (4.20-5.40); Red Cell Dist. Width 12.2 % (11.5-14.5); White Blood Cell Count 7.9 10^3/uL (4.8-10.8)
[2024-09-06 13:31] LABS: Urine Albumin Negative (Neg - Trace); Urine Bilirubin Negative (Negative); Urine Character Clear (Clear); Urine Color Straw; Urine Glucose Negative (Negative); Urine Ketone Negative (Negative); Urine Leukocyte Negative (Negative); Urine Nitrite Negative (Negative); Urine Occult Blood Negative (Negative); Urine Urobilinogen Negative (Neg - 1+)
[2024-09-06 13:42] LABS: HCG, Serum Qualitative Screen Negative
[2024-09-06 13:44] LABS: ALT (SGPT) 35 U/L (0-35); AST (SGOT) 25 U/L (14-36); Albumin 4.8 g/dl (3.5-5.0); Alkaline Phosphatase 59 U/L (38-126); Blood Urea Nitrogen 11 mg/dl (7-17); Carbon Dioxide 25 mmol/L (22-30); Chloride 104 mmol/L (98-107); Glucose 94 mg/dl (70-99); Potassium 4.6 mmol/L (3.5-5.1); Sodium 141 mmol/L (135-145); Total Bilirubin 0.4 mg/dl (0.2-1.3); Total Protein 7.4 g/dl (6.3-8.2); eGFR > 60.00
[2024-09-06 15:00] VITALS: BP 135/87
[2024-09-06 15:59] VITALS: BMI 30.1
[2024-09-06] MEDS: NSS 1000 IV (16:54)
[2024-09-06] MEDS: TORADOL 30 MG IV (16:55)
[2024-09-06 17:07] LABS: Creatine Phosphokinase 66 U/L (30-135)
[2024-09-06 17:13] LABS: Monotest Negative (Negative)
[2024-09-06 17:16] LABS: Erythrocyte Sed Rate 10 mm/hour (0-20)
[2024-09-06 17:17] LABS: C-Reactive Protein < 5.00 mg/L (0.0-10.00)
[2024-09-06 18:33] VITALS: BP 124/68
[2024-09-09 01:43] LABS: EBV-EA (D) Ab IgG 5.9 U/mL (0.0-10.9); EBV-VCA IgG Antibodies >750.0 U/mL (0.0-21.9); EBV-VCA IgM Antibodies <10.0 U/mL (0.0-43.9)
[2024-09-09 11:48] LABS: Lyme Antibody Screen, EIA Negative (Negative)
== END 2024-09-06 18:35 | disposition home or self-care (01) ==
LOC: EMR 12:32
PROVIDERS: Physician Assistant Medical; EMERGENCY PHYSICIAN Emergency Medicine; FAMILY PHYSICIAN Emergency Medicine
DX: R53.83 Other fatigue (principal); M79.10 Myalgia, unspecified site; K21.9 Gastro-esophageal reflux disease without esophagitis; J45.909 Unspecified asthma, uncomplicated; E78.00 Pure hypercholesterolemia, unspecified; Z87.891 Personal history of nicotine dependence
CPT/HCPCS: 99284; 96374; 96361; 74176; 80053; 81003; 82550; 84703; 85025; 85652; 86140; 86308; 86618; 86663; 86664; 86665; 87040

== ENCOUNTER 2024-09-15 17:35 | Emergency (ER) | payer OTHER, SELFPAY ==
[2024-09-15 17:38] VITALS: BP 144/90
[2024-09-15 18:12] LABS: Urine Albumin Negative (Neg - Trace); Urine Bilirubin Negative (Negative); Urine Character Clear (Clear); Urine Color Yellow; Urine Glucose Negative (Negative); Urine Ketone Negative (Negative); Urine Leukocyte Negative (Negative); Urine Nitrite Negative (Negative); Urine Occult Blood 4+ (Negative); Urine Urobilinogen Negative (Neg - 1+); Urine pH 6.5 (5.0-9.0)
[2024-09-15 18:24] LABS: Urine Bacteria Few (Negative); Urine White Cell 0-2 /HPF (0-5)
--- NOTE | 2024-09-15 18:46 | ED.GENMED ---
History of Present Illness
<JOMAR Lopez - Last Filed: 09/15/24 22:54>
General
Chief Complaint: Back Pain
Source: patient
Exam Limitations: none
Time Seen by Provider: 09/15/24 18:20
History of Present Illness
History of Present Illness:
This is a 29 year old female that comes in with c/o left sided mid back pain. States that she started with pain on Monday the . States that she was just eating lunch when she started with this stabbing pain on the left lower rib area. States that
at first she used heat and ice and this did not help. States that she was here on the and she was told that everything was fine. States that she continued with heat and ice and the pain subsided but never went away. Then on Monday and
she started with fever and body aches. States that she had mild pain at that time. States that she was here on Monday and the did a CT scan and labs and again everything was ok. Today she was just sitting watching TV with her family and she
went from 0-100 with pain and she couldn't get up of the sofa. States that she has had a low grade fever of 99.5. States that she also had tested positive for COVID on the . States that she has felt that she was in a brain fog with slight
Dizziness occasionally and has had SOB and nausea. Denies any chills, chest pain, abd pain, vomiting, diarrhea, headache, urinary burning.
Past History
<JOMAR Lopez - Last Filed: 09/15/24 22:54>
Past History
ED Past Medical History: Asthma, GERD, Hypercholesterolemia, Psychiatric (Anxiety, Depression), Other (ovarian cyst, Numbness arms and legs, Lyme, Anemia, ) and Other
ED Past Surgical History: (X 2) and Gynecological (D&C X 2)
Social History
Tobacco: Former smoker
Alcohol: Occasional
Drug: None
Personal: Single
Living: with family (Lives with her partner)
Employment: Employed (massage therapist)
Family History
Family History: Other (Mom has a history of kidney stones)
Review of Systems
<JOMAR Lopez - Last Filed: 09/15/24 22:54>
Review of Systems
All Other Systems: ROS reviewed and negative except as documented in HPI and ROS
Constitutional: Reports fever; Denies chills
EENT: Reports no symptoms
Respiratory: Reports trouble breathing; Denies cough
Cardiac: Reports no symptoms; Denies chest pain
ABD/GI: Reports nausea; Denies abdominal pain, vomiting or diarrhea
: Reports no symptoms; Denies dysuria, frequency or urgency
Musculoskeletal: Reports back pain (Left sided)
Skin: Reports no symptoms
Neurological: Reports dizzy (occasionally); Denies headache
Psychiatric: Reports no symptoms
Phy Exam
<JOMAR Lopez - Last Filed: 09/15/24 22:54>
General Physical Exam
General Presentation: mild distress
General age: appears stated age
General Skin: warm and dry
General Habitus: normal
General Mental: alert
General Hydration: appears well hydrated
ENT Exam
ENT Exam: TM's normal, pharynx normal and neck supple
Eye Exam
Eye Exam: EOMI
Cardiovascular Exam
Cardiovascular Exam: regular rate/rhythm, no edema, no murmur and normal peripheral pulses
Pulmonary Exam
Pulmonary Exam: lungs clear, no respiratory distress, no rales, chest non tender, no crackles, no rhonchi, no wheezing and no cough
Gastrointestinal Exam
Gastrointestinal Exam: normal bowel sounds, non tender, soft, no organomegaly, no pulsatile mass and non distended
Musculoskeletal Exam
Musculoskeletal Exam: full ROM, back pain (Left mid back lateral to the spine. Pain can be reproduced with palpation) and no edema
Skin Exam
Skin Exam: normal color, warm/dry, no rash and no petechia
Psychiatric Exam
Psychiatric Exam: normal mood/affect
Course
<JOMAR Lopez - Last Filed: 09/15/24 22:54>
Orders/Labs/Results
Orders:
Orders
09/15/24 18:05
Urinalysis Reflex To Culture Urgent
Date Specimen was Collected: 09/15/24
Time Specimen was Collected: 17:56
Urine Microscopic Reflex Cult Urgent
09/15/24 18:37
Test Result ONCE
09/15/24 18:56
Acetaminophen [Tylenol] 1,000 mg PO NOW STA
Ketorolac [Toradol] 30 mg IV NOW STA
09/15/24 19:00
Complete Blood Count/With Diff Urgent
Comprehensive Metabolic Panel Urgent
HCG, Serum Qualitative Screen Urgent
Monotest Urgent
09/15/24 19:01
Electrocardiogram (*1) Urgent
Reason for Study: Shortness of Breath
EKG- Treatment ONCE
09/15/24 19:33
D-Dimer Routine
Comment: RECOLLECT
Troponin I Urgent
09/15/24 20:26
CR Chest - 2 Views Urgent
Comment:
Reason For Exam: SOB
09/15/24 20:52
US Abdomen Complete/Upper Urgent
Comment:
Reason For Exam: Left posterior mid back pain
Abnormal Lab Results
09/15/24 09/15/24
18:05 19:00
Total Bilirubin 0.1 L mg/dl
(0.2-1.3)
Ur Occult Blood Reflex 4+ A
(Negative)
Urine RBC 11-15 A /HPF
(0-2)
Urine Bacteria (Reflex) Few A
(Negative)
09/15/24 19:00
09/15/24 19:00
Urine negative for infection, positive for blood, Troponin <0.012, D-dimer <0.27, Kingfisher is negative.
Vital Signs
Initial and Last Documented VS:
Initial Vital Signs
Temp Pulse Resp BP Pulse Ox
99.8 F 84 16 144/90 100
09/15/24 17:38 09/15/24 17:38 09/15/24 17:38 09/15/24 17:38 09/15/24 17:38
Last Documented Vital Signs
Temp Pulse Resp BP Pulse Ox
99.8 F 84 16 144/90 100
09/15/24 17:38 09/15/24 17:38 09/15/24 17:38 09/15/24 17:38 09/15/24 17:38
<Freddie Menard, DO - Last Filed: 09/15/24 21:27>
Orders/Labs/Results
Orders:
Orders
09/15/24 18:05
Urinalysis Reflex To Culture Urgent
Date Specimen was Collected: 09/15/24
Time Specimen was Collected: 17:56
Urine Microscopic Reflex Cult Urgent
09/15/24 18:37
Test Result ONCE
09/15/24 18:56
Acetaminophen [Tylenol] 1,000 mg PO NOW STA
Ketorolac [Toradol] 30 mg IV NOW STA
09/15/24 19:00
Complete Blood Count/With Diff Urgent
Comprehensive Metabolic Panel Urgent
HCG, Serum Qualitative Screen Urgent
Monotest Urgent
09/15/24 19:01
Electrocardiogram (*1) Urgent
Reason for Study: Shortness of Breath
EKG- Treatment ONCE
09/15/24 19:33
D-Dimer Routine
Comment: RECOLLECT
Troponin I Urgent
09/15/24 20:26
CR Chest - 2 Views Urgent
Comment:
Reason For Exam: SOB
09/15/24 20:52
US Abdomen Complete/Upper Urgent
Comment:
Reason For Exam: Left posterior mid back pain
Abnormal Lab Results
09/15/24 09/15/24
18:05 19:00
Total Bilirubin 0.1 L mg/dl
(0.2-1.3)
Ur Occult Blood Reflex 4+ A
(Negative)
Urine RBC 11-15 A /HPF
(0-2)
Urine Bacteria (Reflex) Few A
(Negative)
09/15/24 19:00
09/15/24 19:00
Vital Signs
Initial and Last Documented VS:
Initial Vital Signs
Temp Pulse Resp BP Pulse Ox
99.8 F 84 16 144/90 100
09/15/24 17:38 09/15/24 17:38 09/15/24 17:38 09/15/24 17:38 09/15/24 17:38
Last Documented Vital Signs
Temp Pulse Resp BP Pulse Ox
99.8 F 84 16 144/90 100
09/15/24 17:38 09/15/24 17:38 09/15/24 17:38 09/15/24 17:38 09/15/24 17:38
<JOMAR Lopez - Last Filed: 09/15/24 22:54>
MDM/Problems Addressed
Differential Diagnosis Includes:
Musculoskeletal pain. PE, PNA
MDM/Problems Addressed:
This is a 29 year old female that comes in with c/o left sided back pain. States that this is her third visit here. Patient also has been diagnosed with COVID on the . States that she was sitting watching TV with her family and she started with
pain that went from 0-100 in the left back. States that the pain was so bad that she couldn't get off the sofa.
Will check labs. Urine, medication for pain.
Back into see patient. Explained that her blood work is normal. Troponin is normal along with D-dimer. Chest x-ray is negative. Kingfisher is negative. Explained that her CT that as just done showed an adenoma that is stable from 04/14/2010. Patient is
insistent on getting an US. Explained that the CT scan is more diagnostic then the US. Will get US and have Dr. Menard see patient.
Dr. Menard noticed some redness on the posterior left back area. Told patient not to rub and will recheck after US.
Into see patient with Dr. Menard. The redness is gone but there are little red spots there. Will treat with antiviral and gabapentin. Explained to patient that you can have pain before the rash brakes out. Patient states that she is not going to
take the medication. States that she has been coming here for 2 weeks and now all of a sudden she has shingles. Explained again to patient that the Pain can happen long before the rash appears. Patient states that she will just follow up with the
family doctor. Patent to return with any concerns. .
Chronic conditions affecting care:
NA
Acute Exacerbation and/or Progression of Chronic Illness:
NA
<JOMAR Lopez - Last Filed: 09/15/24 22:54>
*Radiology
Radiology exam reviewed: radiology read reviewed (US-Negative abdominal ultrasound. Specifically no sonographic evidence of acute cholecystitis. )
*Pulse Oximetry
Patient hypoxic: no
*Health Counselor Interpretation
Rate: Health Counselor- N/A
*Critical Care Note
Total Time (30-74mins, 75-104mins- exclusive of procedures): Not Applicable
ED Attending Note
<JOMAR Lopez - Last Filed: 09/15/24 22:54>
-
Portions of this chart may have been created with voice recognition software.� Occasional wrong word or��sound alike� substitutions may have occurred due to the inherent limitations of voice recognition software.
<Freddie M. Menard, DO - Last Filed: 09/15/24 21:27>
ED Attending Note
Patient seen and examined by attending physician: Yes
I performed the substantive portion of visit, reviewed & personally made and approve the management plan that is documented in note by myself or MERCEDES.: Yes
ED Attending Note:
I have seen and evaluated the patient with a [id number] encounter. I have spoken to the advance practicer provider and involved in the medical history, the physical exam, medical decision making.
Evaluation and management service: agree unless noted differently below.
Results interpretation: agree unless noted differently below.
Focused HPI: 29-year-old female presenting with persistent left back pain. Patient has had multiple negative workups. She states her PCP continues to send her back to the emergency department
Physical exam: Tearful and upset. Mild rash to left posterior ribs but this is where patient has been rubbing. Lungs clear
Medical Decision Making: I discussed avoidance of rubbing the area. If rash remains, will consider antivirals. Lungs are clear. D-dimer negative
Discharge Plan
Departure
Patient Disposition: Home (Routine Discharge)
Date of Disposition: 09/15/24
Time of Disposition: 22:32
Patient with high blood pressure during this ER visit?: Yes
Condition: Good
Covid-19: Not Applicable
Discharge Problem:
Shingles
Instructions: Shingles, BLOOD PRESSURE
Prescriptions:
New
valacyclovir [Valtrex] 1 gram tablet
1,000 mg PO TID Qty: 21 0RF
No Action
acetaminophen 325 mg Tablet
650 mg PO SDS-Q4HPRN PRN (Reason: mild pain) Qty: 0 0RF
ibuprofen 600 mg tablet
600 mg PO Q6H MDD 2400mg PRN (Reason: fever or pain) Qty: 20 0RF
Rx Instructions:
Do not take first dose prior to 10pm on 01/21/2024
doxycycline hyclate 100 mg capsule
100 mg PO BID Qty: 6 0RF
Referrals:
Bella Dial MD [Family Provider] - Follow up in 2-3 days
Activity Restrictions/Additional Instructions:
As discussed, your blood work is normal. Your are D-dimer is negative and your mono and chest X-ray are negative. Your ultrasound is normal. There is at this time some red spots that have started. You can have the pain prior to any shingles rash
before hand. The sooner you get started on antivirals the better to help control the shingles. You have been offered medication but have decided against this. Please follow up with the family doctor. IF YOU HAVE ANY OTHER CONCERNS PLEASE RETURN TO
THE EMERGENCY ROOM.
Interventions
Interventions:
*Risk Screen - Suicide Last Done: 09/15/24 17:38
*General Assessment Last Done: 09/15/24 17:44
*Neglect/Abuse Screening Last Done: 09/15/24 17:38
*ED COVID-19 Vaccine History Last Done: 09/15/24 17:44
ED-Musculoskeletal Assessment Last Done: 09/15/24 17:44
Discharge Date and Time
Print Language: BRAZILIAN
[2024-09-15 19:08] LABS: % Basophils 0.4 % (0-2); % Eosinophils 3.7 % (0-6); % Immature Granulocytes 0.1 % (0-0.5); % Lymphocytes 25.6 % (20.5-51.1); % Neutrophils 64.2 % (42.2-75.2); Absolute Eosinophils 0.3 10^3/uL (0-0.7); Absolute Monocytes 0.5 10^3/uL (0.1-0.6); Hematocrit 37.7 % (37.0-47.0); Hemoglobin 12.5 g/dL (12.0-16.0); Mean Corp Hgb Conc. 33.2 g/dL (33.0-37.0); Mean Corpuscular Hgb 28.7 pg (27.0-31.0); Mean Corpuscular Volume 86.5 fL (81.0-99.0); Mean Platelet Volume 9.3 fL (7.4-10.4); Nucleated Red Blood Cells % 0 %; Platelet Count 304 10^3/uL (130-400); Red Blood Cell Count 4.36 10^6/uL (4.20-5.40); Red Cell Dist. Width 12.6 % (11.5-14.5); White Blood Cell Count 7.8 10^3/uL (4.8-10.8)
[2024-09-15 19:21] LABS: HCG, Serum Qualitative Screen Negative
[2024-09-15 19:26] LABS: Monotest Negative (Negative)
[2024-09-15 19:30] LABS: ALT (SGPT) 32 U/L (0-35); AST (SGOT) 28 U/L (14-36); Albumin 4.6 g/dl (3.5-5.0); Alkaline Phosphatase 61 U/L (38-126); Blood Urea Nitrogen 12 mg/dl (7-17); Calcium 9.8 mg/dl (8.4-10.2); Carbon Dioxide 25 mmol/L (22-30); Chloride 105 mmol/L (98-107); Glucose 96 mg/dl (70-99); Potassium 4.6 mmol/L (3.5-5.1); Sodium 143 mmol/L (135-145); Total Bilirubin 0.1 mg/dl (0.2-1.3); Total Protein 7.1 g/dl (6.3-8.2); eGFR > 60.00
[2024-09-15] MEDS: TORADOL 30 MG IV (19:31)
[2024-09-15] MEDS: TYLENOL 1000 MG PO (19:31)
[2024-09-15 19:56] LABS: D-Dimer < 0.27 ug/mlFEU (0.00-0.50)
[2024-09-15 20:03] LABS: Troponin I < 0.012 ng/ml
[2024-09-15 23:07] VITALS: BP 132/84
== END 2024-09-15 23:07 | disposition home or self-care (01) ==
LOC: EMR 17:35
PROVIDERS: Clinical Nurse Specialist Family Health; Emergency Medicine; EMERGENCY PHYSICIAN Student in an Organized Health Care Education/Training Program; FAMILY PHYSICIAN Emergency Medicine
DX: B02.9 Zoster without complications (principal); R03.0 Elevated blood-pressure reading, without diagnosis of hypertension; Z87.891 Personal history of nicotine dependence
CPT/HCPCS: 99285; 96374; 71046; 76700; 80053; 81003; 81015; 84484; 84703; 85025; 85379; 86308; 93005

== ENCOUNTER → 2024-10-16 18:59 | Outpatient (REF) | payer OTHER, SELFPAY | LOC: MRI 18:59 | PROVIDERS: ATTENDING PHYSICIAN Nurse Practitioner Family; FAMILY PHYSICIAN Emergency Medicine | DX: R42 Dizziness and giddiness (principal); R41.89 Other symptoms and signs involving cognitive functions and awareness; R29.818 Other symptoms and signs involving the nervous system | CPT/HCPCS: 70553; A9575 ==

== ENCOUNTER → 2024-11-04 16:22 | Outpatient (REF) | payer OTHER, SELFPAY ==
[2024-11-04 19:21] LABS: Beta HCG Quantitative < 2.39 mIU/ml; Progesterone 5.84 ng/ml
== END ==
LOC: REG 16:22
PROVIDERS: ATTENDING PHYSICIAN Advanced Practice Midwife
DX: Z32.01 Encounter for pregnancy test, result positive (principal)
CPT/HCPCS: 36415; 84144; 84702

== ENCOUNTER → 2024-11-06 07:19 | Outpatient (REF) | payer OTHER, SELFPAY ==
[2024-11-06 08:16] LABS: Beta HCG Quantitative 6.44 mIU/ml
== END ==
LOC: REG 07:19
PROVIDERS: ATTENDING PHYSICIAN Advanced Practice Midwife; FAMILY PHYSICIAN Emergency Medicine
DX: Z32.01 Encounter for pregnancy test, result positive (principal)
CPT/HCPCS: 36415; 84702

== ENCOUNTER → 2024-11-08 08:20 | Outpatient (REF) | payer OTHER, SELFPAY ==
[2024-11-08 09:46] LABS: Progesterone 7.55 ng/ml
[2024-11-08 09:48] LABS: Beta HCG Quantitative 8.14 mIU/ml
== END ==
LOC: REG 08:20
PROVIDERS: ATTENDING PHYSICIAN Advanced Practice Midwife
DX: Z32.01 Encounter for pregnancy test, result positive (principal)
CPT/HCPCS: 36415; 84144; 84702

== ENCOUNTER 2024-11-25 21:08 | Emergency (ER) | payer OTHER, SELFPAY ==
[2024-11-25 21:10] VITALS: BP 147/94
[2024-11-25 21:25] LABS: % Basophils 0.4 % (0-2); % Eosinophils 2.9 % (0-6); % Immature Granulocytes 0.3 % (0-0.5); % Lymphocytes 30.4 % (20.5-51.1); % Monocytes 6.4 % (1.7-9.3); % Neutrophils 59.6 % (42.2-75.2); Absolute Eosinophils 0.3 10^3/uL (0-0.7); Absolute Lymphocytes 3.2 10^3/uL (1.2-3.4); Absolute Monocytes 0.7 10^3/uL (0.1-0.6); Absolute Neutrophils 6.2 10^3/uL (1.4-6.5); Hematocrit 42.1 % (37.0-47.0); Hemoglobin 14.2 g/dL (12.0-16.0); Mean Corp Hgb Conc. 33.7 g/dL (33.0-37.0); Mean Corpuscular Hgb 30.3 pg (27.0-31.0); Mean Platelet Volume 9.3 fL (7.4-10.4); Nucleated Red Blood Cells % 0 %; Platelet Count 292 10^3/uL (130-400); Red Blood Cell Count 4.68 10^6/uL (4.20-5.40); Red Cell Dist. Width 13.2 % (11.5-14.5); White Blood Cell Count 10.4 10^3/uL (4.8-10.8)
[2024-11-25 21:41] LABS: ALT (SGPT) 25 U/L (0-35); AST (SGOT) 22 U/L (14-36); Albumin 4.8 g/dl (3.5-5.0); Alkaline Phosphatase 59 U/L (38-126); Blood Urea Nitrogen 13 mg/dl (7-17); Calcium 9.9 mg/dl (8.4-10.2); Carbon Dioxide 27 mmol/L (22-30); Chloride 100 mmol/L (98-107); Glucose 99 mg/dl (70-99); Potassium 4.6 mmol/L (3.5-5.1); Sodium 137 mmol/L (135-145); Total Bilirubin 0.2 mg/dl (0.2-1.3); Total Protein 7.4 g/dl (6.3-8.2); eGFR > 60.00
[2024-11-25 21:55] LABS: Beta HCG Quantitative 68.08 mIU/ml
== END 2024-11-26 00:52 ==
LOC: EMR 21:08
PROVIDERS: Student in an Organized Health Care Education/Training Program
DX: O20.9 Hemorrhage in early pregnancy, unspecified (principal); Z3A.00 Weeks of gestation of pregnancy not specified; R10.2 Pelvic and perineal pain; Z53.21 Procedure and treatment not carried out due to patient leaving prior to being seen by health care provider
CPT/HCPCS: 99281; 80053; 84702; 85025

== ENCOUNTER → 2024-11-26 12:43 | Outpatient (REF) | payer OTHER, SELFPAY | LOC: RAD 12:43 | PROVIDERS: ATTENDING PHYSICIAN Advanced Practice Midwife | DX: O02.0 Blighted ovum and nonhydatidiform mole (principal) | CPT/HCPCS: 76801; 76817 ==

== ENCOUNTER 2024-11-27 10:50 | Emergency (ER) | payer OTHER, SELFPAY ==
[2024-11-27 11:00] VITALS: BP 127/76
[2024-11-27 11:19] LABS: % Basophils 0.5 % (0-2); % Immature Granulocytes 0.3 % (0-0.5); % Lymphocytes 30.5 % (20.5-51.1); % Monocytes 6.2 % (1.7-9.3); % Neutrophils 58.5 % (42.2-75.2); Absolute Eosinophils 0.3 10^3/uL (0-0.7); Absolute Lymphocytes 1.9 10^3/uL (1.2-3.4); Absolute Monocytes 0.4 10^3/uL (0.1-0.6); Absolute Neutrophils 3.7 10^3/uL (1.4-6.5); Hematocrit 40.5 % (37.0-47.0); Hemoglobin 13.7 g/dL (12.0-16.0); Mean Corp Hgb Conc. 33.8 g/dL (33.0-37.0); Mean Corpuscular Volume 88.8 fL (81.0-99.0); Mean Platelet Volume 9.4 fL (7.4-10.4); Nucleated Red Blood Cells % 0 %; Platelet Count 246 10^3/uL (130-400); Red Blood Cell Count 4.56 10^6/uL (4.20-5.40); Red Cell Dist. Width 13.2 % (11.5-14.5); White Blood Cell Count 6.3 10^3/uL (4.8-10.8)
[2024-11-27 11:34] LABS: ALT (SGPT) 26 U/L (0-35); AST (SGOT) 27 U/L (14-36); Albumin 4.5 g/dl (3.5-5.0); Alkaline Phosphatase 61 U/L (38-126); Blood Urea Nitrogen 12 mg/dl (7-17); Calcium 9.3 mg/dl (8.4-10.2); Carbon Dioxide 23 mmol/L (22-30); Chloride 103 mmol/L (98-107); Glucose 118 mg/dl (70-99); Potassium 4.1 mmol/L (3.5-5.1); Sodium 138 mmol/L (135-145); Total Bilirubin 0.6 mg/dl (0.2-1.3); eGFR > 60.00
[2024-11-27 11:50] LABS: Beta HCG Quantitative 84.84 mIU/ml
--- NOTE | 2024-11-27 13:01 | ED.GENMED ---
History of Present Illness
General
Chief Complaint: Problems
Source: patient
Exam Limitations: none
Time Seen by Provider: 11/27/24 12:42
Nursing documentation reviewed up to this point in time: agreed with
History of Present Illness
History of Present Illness:
29 yo female here for US to r/o ectopic or rule in early
[id number], may be now.
LMP 11/15 Positive HCG on 11/04
States HCG 'never got above 10.' Told 'chemical '
Heavy vaginal bleeding 11/11 x 5 days
Now states past 3 days of nausea, generalized abdominal 'full, achy, crampy' pains.
Concerned she has ectopic or early new
O/P US yesterday: IMPRESSION:
There is a 1.7 x 1.7 x 1.3 cm heterogeneous isoechoic and hypoechoic mass in the right ovary which may be a complex/hemorrhagic cyst, however, ectopic is not excluded and correlation with patient's serial beta-hCG levels is recommended.
Past History
Past History
ED Past Medical History: Asthma, GERD, Hypercholesterolemia, Psychiatric (Anxiety, Depression), Other (ovarian cyst, Numbness arms and legs, Lyme, Anemia, ) and Other
ED Past Surgical History: (X 2) and Gynecological (D&C X 2)
Social History
Tobacco: Former smoker
Alcohol: Occasional
Drug: None
Personal: Single
Living: with family (Lives with her partner)
Employment: Employed (massage therapist)
Family History
Family History: Other (Mom has a history of kidney stones)
Review of Systems
Review of Systems
Allergies reviewed?: Yes
All Other Systems: ROS reviewed and negative except as documented in HPI and ROS
Constitutional: Denies fever
Respiratory: Denies trouble breathing
Cardiac: Denies chest pain
ABD/GI: Reports abdominal pain and nausea; Denies vomiting, diarrhea or anorexia
: Denies dysuria, frequency or difficulty voiding
Musculoskeletal: Reports other (gets a pain posterior left shoulder intermittentlly)
Skin: Reports no symptoms
Neurological: Reports no symptoms
Phy Exam
Physical Exam
Physical Exam:
GENERAL: No acute distress. A&Ox3.
CONSTITUTIONAL: Afebrile.
EYES: clear, conjunctivae normal
ENMT: moist mucus membranes
RESPIRATORY: Regular respirations, nonlabored, lungs clear.
CARDIOVASCULAR: Regular rate and rhythm, no murmurs, no rubs.
GI: Soft, mildly generally tender,, normal BS
MUSCULOSKELETAL: Moves with ease. Well perfused.
SKIN: Warm, dry, pink
PSYCH: Normal mood and affect. Well kept, interactive and appropriate
NEUROLOGIC: Awake, alert and oriented. No focal neurological deficits
Course
Orders/Labs/Results
Orders:
Orders
11/27/24 11:05
US W Transvaginal Urgent
Reason For Exam: lower abdominal cramping
11/27/24 11:11
Beta HCG Quantitative Urgent
Is this a screen?: No
Comment: need quant r/o ectopic
Complete Blood Count/With Diff Urgent
Comprehensive Metabolic Panel Urgent
11/27/24 12:42
US Pnt Transvag Urgent
Reason for Exam: concern for ectopic
Abnormal Lab Results
11/27/24
11:11
Glucose 118 H mg/dl
(70-99)
11/27/24 11:11
11/27/24 11:11
Vital Signs
Initial and Last Documented VS:
Initial Vital Signs
Temp Pulse Resp BP Pulse Ox
98.5 F 90 18 127/76 100
11/27/24 11:00 11/27/24 11:00 11/27/24 11:00 11/27/24 11:00 11/27/24 11:00
Last Documented Vital Signs
Temp Pulse Resp BP Pulse Ox
98.5 F 83 16 108/71 100
11/27/24 11:00 11/27/24 14:57 11/27/24 14:57 11/27/24 14:57 11/27/24 14:57
Information
Weeks gestation: N/A
Location: N/A
MDM/Problems Addressed
Differential Diagnosis Includes:
ectopic , early
MDM/Problems Addressed:
29 yo female here for US to r/o ectopic or rule in early
[id number], may be now.
LMP 10/11 Positive HCG on 11/04 at home
Nov 06 HCG , HCG was [address] Hernandez looking at her records
States HCG 'never got above 10.' Told 'chemical '
Then she had Heavy vaginal bleeding 11/11 x 5 days
Now states past 3 days of nausea, generalized abdominal 'full, achy, crampy' pains. HCG two days ago was 68
o/p US yesterday: IMPRESSION:
There is a 1.7 x 1.7 x 1.3 cm heterogeneous isoechoic and hypoechoic mass in the right ovary which may be a complex/hemorrhagic cyst, however, ectopic is not excluded and correlation with patient's serial beta-hCG levels is recommended.
CBC normal
CMP normal
HC.84
US radiology report read: IMPRESSION:
1. No sonographic evidence for intrauterine gestational sac.
2. Multiple follicles in the left ovary.
3. 1.9 cm collapsed corpus luteal cyst in the right ovary and a small amount of peritoneal fluid adjacent to the right adnexa. A right ovarian ectopic is a less likely diagnostic possibility.
Case presented to [facility] Dr. Hernandez and sent copy of US report.
Unclear if pt has new as she never had a negative HCG
Dr. Hernandez requests repeat HCG Monday, she sent order to out pt lab. Shayla Jason was w Dr. Hernandez, is aware and will call pt Monday
*Critical Care Note
Total Time (30-74mins, 75-104mins- exclusive of procedures): Not Applicable
ED Attending Note
-
Portions of this chart may have been created with voice recognition software.� Occasional wrong word or��sound alike� substitutions may have occurred due to the inherent limitations of voice recognition software.
Discharge Plan
Departure
Patient Disposition: Home (Routine Discharge)
Date of Disposition: 11/27/24
Time of Disposition: 15:43
Patient with high blood pressure during this ER visit?: No
Condition: Good
Discharge Problem:
Abdominal pain, Elevated serum hCG
Prescriptions:
No Action
acetaminophen 325 mg Tablet
650 mg PO SDS-Q4HPRN PRN (Reason: mild pain) Qty: 0 0RF
ibuprofen 600 mg tablet
600 mg PO Q6H MDD 2400mg PRN (Reason: fever or pain) Qty: 20 0RF
Rx Instructions:
Do not take first dose prior to 10pm on 01/21/2024
doxycycline hyclate 100 mg capsule
100 mg PO BID Qty: 6 0RF
valacyclovir [Valtrex] 1 gram tablet
1,000 mg PO TID Qty: 21 0RF
Referrals:
Bella Dial MD [Family Provider] -
Shayla Jason CNM [Certified Nurse Embroidery Cutter] - Follow up in 2-3 days
Activity Restrictions/Additional Instructions:
As we discussed, I spoke with Dr. Hernandez who was with Shayla Jason so both know the situation.
Nothing worrisome on your US at this time. No obvious ectopic or uterine
She recommends repeat beta HCG on Monday. She sent the order to the out pt lab so just go and get it done.
Shayla will touch base with you on Monday.
No way to tell if HCG is elevated from initial episode or from a new as you never had a negative HCG during all this.
Return here immediately for worsening abdominal pain, fever or feeling sicker in any way.
Interventions
Interventions:
*Risk Screen - Suicide Last Done: 11/27/24 11:00
*General Assessment Last Done: 11/27/24 11:00
*Neglect/Abuse Screening Last Done: 11/27/24 11:00
ED- Fall Risk Assessment Last Done: 11/27/24 15:01
*ED COVID-19 Vaccine History Last Done: 11/27/24 11:00
ED-Female Genitourinary Assessment Last Done: 11/27/24 15:01
Discharge Date and Time
Print Language: [place]
[2024-11-27 14:57] VITALS: BP 108/71
== END 2024-11-27 16:12 | disposition home or self-care (01) ==
LOC: EMR 10:50
PROVIDERS: Emergency Medicine; EMERGENCY PHYSICIAN Emergency Medicine; FAMILY PHYSICIAN Emergency Medicine
DX: N83.201 Unspecified ovarian cyst, right side (principal); R11.0 Nausea; R10.30 Lower abdominal pain, unspecified; N93.9 Abnormal uterine and vaginal bleeding, unspecified; R79.89 Other specified abnormal findings of blood chemistry; K21.9 Gastro-esophageal reflux disease without esophagitis; E78.00 Pure hypercholesterolemia, unspecified; F41.9 Anxiety disorder, unspecified; F32.A Depression, unspecified; D64.9 Anemia, unspecified; J45.909 Unspecified asthma, uncomplicated; Z87.891 Personal history of nicotine dependence; Z91.040 Latex allergy status; Z88.8 Allergy status to other drugs, medicaments and biological substances; Z91.048 Other nonmedicinal substance allergy status
CPT/HCPCS: 99284; 76801; 76817; 80053; 84702; 85025

== ENCOUNTER → 2024-11-29 08:29 | Outpatient (REF) | payer OTHER, SELFPAY ==
[2024-11-29 13:17] LABS: Beta HCG Quantitative 100.85 mIU/ml
== END ==
LOC: REG 08:29
PROVIDERS: ATTENDING PHYSICIAN Obstetrics & Gynecology; FAMILY PHYSICIAN Emergency Medicine
DX: Z32.01 Encounter for pregnancy test, result positive (principal)
CPT/HCPCS: 36415; 84702

== ENCOUNTER 2024-12-01 12:04 | Emergency (ER) | payer OTHER, SELFPAY ==
[2024-12-01 12:09] VITALS: BP 136/86
[2024-12-01 12:34] LABS: % Basophils 0.5 % (0-2); % Eosinophils 2.5 % (0-6); % Immature Granulocytes 0.3 % (0-0.5); % Lymphocytes 23.1 % (20.5-51.1); % Monocytes 5.4 % (1.7-9.3); % Neutrophils 68.2 % (42.2-75.2); Absolute Eosinophils 0.2 10^3/uL (0-0.7); Absolute Lymphocytes 1.8 10^3/uL (1.2-3.4); Absolute Monocytes 0.4 10^3/uL (0.1-0.6); Absolute Neutrophils 5.2 10^3/uL (1.4-6.5); Hematocrit 40.5 % (37.0-47.0); Hemoglobin 13.9 g/dL (12.0-16.0); Mean Corp Hgb Conc. 34.3 g/dL (33.0-37.0); Mean Corpuscular Hgb 30.6 pg (27.0-31.0); Mean Corpuscular Volume 89.2 fL (81.0-99.0); Mean Platelet Volume 9.4 fL (7.4-10.4); Nucleated Red Blood Cells % 0 %; Platelet Count 264 10^3/uL (130-400); Red Blood Cell Count 4.54 10^6/uL (4.20-5.40); White Blood Cell Count 7.7 10^3/uL (4.8-10.8)
[2024-12-01 12:48] LABS: ALT (SGPT) 28 U/L (0-35); AST (SGOT) 23 U/L (14-36); Albumin 4.8 g/dl (3.5-5.0); Alkaline Phosphatase 60 U/L (38-126); Blood Urea Nitrogen 11 mg/dl (7-17); Calcium 9.4 mg/dl (8.4-10.2); Carbon Dioxide 22 mmol/L (22-30); Chloride 104 mmol/L (98-107); Glucose 106 mg/dl (70-99); Potassium 4.4 mmol/L (3.5-5.1); Sodium 138 mmol/L (135-145); Total Bilirubin 0.5 mg/dl (0.2-1.3); Total Protein 7.2 g/dl (6.3-8.2); eGFR > 60.00
[2024-12-01 13:06] LABS: Beta HCG Quantitative 142.41 mIU/ml
--- NOTE | 2024-12-01 13:45 | ED.GENMED ---
History of Present Illness
General
Chief Complaint: Problems
Source: patient
Exam Limitations: none
Time Seen by Provider: 12/01/24 13:28
Nursing documentation reviewed up to this point in time: agreed with
History of Present Illness
History of Present Illness:
Patient is a 29 year old female presenting to the emergency department for evaluation of lower abdominal pain. Patient reports intermittent lower abdominal discomfort over the past few weeks. Patient has been monitoring her hCG levels closely
outpatient given concern for possible ectopic .
Patient reports last normal period was early September. She then had a few positive at-home tests although hCG levels in early October were not rising appropriately. Patient then had a few days of vaginal bleeding through mid October
which was thought to be possible miscarriage. However�patient then developed lower abdominal discomfort and had another positive test at home.
Patient was seen in the emergency department for lower abdominal pain 11/27/24 where hCG level was 85. On 11/29 hCG was 100. Today�hCG is 142.
Patient did contact [facility] who recommended evaluation the emergency department to rule out ectopic . Patient denies any fever, chills, dizziness/lightheadedness, or shortness of breath. No current vaginal bleeding or loss of fluids.
Patient did have a miscarriage 01/2024
Past History
Past History
ED Past Medical History: Asthma, GERD, Hypercholesterolemia, Psychiatric (Anxiety, Depression), Other (ovarian cyst, Numbness arms and legs, Lyme, Anemia, ) and Other
ED Past Surgical History: (X 2) and Gynecological (D&C X 2)
Social History
Tobacco: Former smoker
Alcohol: Occasional
Drug: None
Personal: Single
Living: with family (Lives with her partner)
Employment: Employed (massage therapist)
Family History
Family History: Other (Mom has a history of kidney stones)
Review of Systems
Review of Systems
Allergies reviewed?: Yes
All Other Systems: ROS reviewed and negative except as documented in HPI and ROS
Phy Exam
Physical Exam
Physical Exam:
Vitals: Mildly hypertensive, otherwise vital signs stable. Afebrile
General: Patient is well appearing, no acute distress. Nontoxic appearing
Skin: Warm and dry, no rashes or lesions
Head: Normocephalic, atraumatic
Eyes: Sclera nonicteric. EOMs intact. No nystagmus.
Throat: Protecting airway
Neck: Normal ROM, no cervical spine tenderness, no meningismus
Cardiac: Regular rate and rhythm, no murmurs.
Pulm: Normal respiratory effort, no wheezes, rales, rhonchi heard on exam.
Abdomen: Abdomen soft. Very mild tenderness in right lower abdomen. No rebound tenderness or guarding.
Extremities: No evidence of cyanosis or edema.
Neuro: AAOx3. Grossly intact.
Psychiatric: Normal affect.
Course
Orders/Labs/Results
Orders:
Orders
12/01/24 12:18
US Transvaginal [US Pelvis W Transvag Combined] Urgent
Comment:
Reason For Exam: 1st trimester// r/o ectopic
12/01/24 12:24
Type+Screen Urgent
Complete Blood Count/With Diff Urgent
Comprehensive Metabolic Panel Urgent
HCG, Beta Quantitative [Beta HCG Quantitative] Urgent
Is this a screen?: No
Comment: preg, monitoring hcg
12/01/24 15:14
Add On- LAB Urgent
Tests Added?: serum progesterone
12/01/24 16:14
Methotrexate Sodium/Pf [Methotrexate] 97.5 mg Intramuscular Injection 0 ml IM ONCE
Abnormal Lab Results
12/01/24
12:24
Glucose 106 H mg/dl
(70-99)
12/01/24 12:24
12/01/24 12:24
Vital Signs
Initial and Last Documented VS:
Initial Vital Signs
Temp Pulse Resp BP Pulse Ox
98.9 F 88 16 136/86 98
12/01/24 12:09 12/01/24 12:09 12/01/24 12:09 12/01/24 12:09 12/01/24 12:09
Last Documented Vital Signs
Temp Pulse Resp BP Pulse Ox
98.9 F 96 16 117/70 99
12/01/24 12:09 12/01/24 16:22 12/01/24 16:22 12/01/24 16:22 12/01/24 16:22
Information
Weeks gestation: N/A
Location: N/A (No evidence of intrauterine -concern for ectopic)
MDM/Problems Addressed
Differential Diagnosis Includes:
Not limited to: Threatened , missed , ectopic , ovarian cyst, etc.
MDM/Problems Addressed:
29-year-old female presenting with lower abdominal pain and inappropriately rising hCG. Sent by [facility]. Patient denies any current vaginal bleeding, shortness of breath, lightheadedness/dizziness. Patient with history of prior miscarriages
although no history of ectopic . Labs initiated in triage without any clinically significant abnormalities. hCG today of 142 up from 100 48 hours prior. A pelvic ultrasound was obtained which shows no evidence of intrauterine .
There is a small cystic mass near her right ovary possible luteal cyst versus possible ovarian ectopic .
Patient has been followed with [facility] closely with outpatient blood draws with inappropriately rising hCG since mid October. [facility] on-call, Dr. Hartley was consulted who came to evaluate patient at bedside. She will proceed with methotrexate
given concern for ectopic as ultrasound shows no evidence of intrauterine today. Dose of methotrexate ordered by Dr. Hartley. Patient has remained hemodynamically stable in emergency department. She will follow-up closely with
[facility] with repeat lab work as directed by [facility] on discharge paperwork. Close return precautions discussed. Patient otherwise stable for discharge.
Chronic conditions affecting care:
N/A
Acute Exacerbation and/or Progression of Chronic Illness:
N/A
*Radiology
Radiology exam reviewed: radiology read reviewed (No intrauterine )
*Pulse Oximetry
Patient hypoxic: no
*EKG
Interpreted by ED Provider?: NA
*Plating Technician Interpretation
Rate: Plating Technician- N/A
*Critical Care Note
Total Time (30-74mins, 75-104mins- exclusive of procedures): Not Applicable
Data Reviewed
Review of Other/Old Records Reveals: Labs (hCG values trending from 11/04/24 to 12/01/2024)
Source: previous hospital records
Patient Management
Discussion with other providers: Bed Worker ([facility]-Dr. Hartley)
ED Attending Note
-
Portions of this chart may have been created with voice recognition software.� Occasional wrong word or��sound alike� substitutions may have occurred due to the inherent limitations of voice recognition software.
Discharge Plan
Departure
Patient Disposition: Home (Routine Discharge)
Date of Disposition: 12/01/24
Time of Disposition: 17:06
Patient with high blood pressure during this ER visit?: No
Condition: Good
Discharge Problem:
Ectopic
Instructions: Methotrexate, Ectopic ED
Prescriptions:
No Action
acetaminophen 325 mg Tablet
650 mg PO SDS-Q4HPRN PRN (Reason: mild pain) Qty: 0 0RF
ibuprofen 600 mg tablet
600 mg PO Q6H MDD 2400mg PRN (Reason: fever or pain) Qty: 20 0RF
Rx Instructions:
Do not take first dose prior to 10pm on 01/21/2024
doxycycline hyclate 100 mg capsule
100 mg PO BID Qty: 6 0RF
valacyclovir [Valtrex] 1 gram tablet
1,000 mg PO TID Qty: 21 0RF
Referrals:
Bella Dial MD [Family Provider] -
Hilda Hartley, DO [Active] - Keep scheduled appt
Activity Restrictions/Additional Instructions:
DIAGNOSIS: of unknown location. This means we do not 100% know location of . Cannot rule out possibility of ectopic .
Methotrexate given day #1 12/01/24
Repeat bloodwork at [facility] on Monday 12/04-> may go to outpatient registration and leave after blood draw. It is not fasting bloodwork.
Repeat bloodwork at [facility] on Thursday 12/07-> come to ER registration desk and they will help have your bloodwork drawn. Try to get labwork done early in morning if possible so we get results ealry in day. You may call the overnight houseperson
doctor if you have not heard from Dr Hartley within 1-2 hrs of results. Call [phone] [employer] for answering service and tell them to call the overnight houseperson doctor. I will sign out to my partners also.
If your HCG level falls appropriately between day 4 and 7, you will need weekly hcgs until negative.
If your level hcg does not fall appropriately, you may need a second dose and directions on when to repeat your labwork.
Dr. Hartley will direct you when to be seen in office depending on your levels.
Go to ER if you have severe abdominal pains, heavy bleeding, you feel like you will pass out, have dizziness or lightheadedness or other concerns.
Avoid motrin, advil, aleve, naproxen until hcg is negative. This reacts with methotrexate.
Avoid direct sunlight exposure, avoid vinegar and do not take any supplement including vitamins with folic acid.
No sexual activity or strenuous exercise until hcg is negative.
Please call [facility] with any concerns.
Interventions
Interventions:
*Risk Screen - Suicide Last Done: 12/01/24 12:09
*General Assessment Last Done: 12/01/24 12:09
*Nursing Disposition Last Done: 12/01/24 17:45
ED-Female Genitourinary Assessment Last Done: 12/01/24 18:12
Discharge Date and Time
Discharge Date/Time: 12/01/24 17:00
Print Language: FAROESE
[2024-12-01 16:18] VITALS: BMI 32.3
[2024-12-01 16:22] VITALS: BP 117/70
--- NOTE | 2024-12-01 16:33 | CON.MD ---
Consultation - Medical
-
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
of unknown location and abnormal rising HCG. Pt called me this am to report having pelvic cramping, some shoulder pain and concern about her HCG levels. She has hx of miscarriage and had intiial HCG 11/06 6.4 with repeat 11/08 8.4. She
reports speaking with Shayla Jason CNM who suspected chemical . Pt states she did not go back for follow up HCG because she started bleeding like a heavy period for 5 days from 11/11-11/16. She reports having some clear cervical mucus and
suspected she ovulated quickly. She did a home hcg test 11/23 and had positive urine hcg. Called office and serum hcg performed on 11/25 was 68. Had some cramping across low pelvis. Repeat HCG 11/27/24 was 84. Pelvic US showed heterogeneous isoechoic
complex mass in right adnexa 1.7 x1.3 cm which was felt could represent corpus luteal cyst. Given low HCG below discriminatory zone, location of could not be determined and therefore ectopic could not be ruled out. Pt advised to recheck
HCG in 2 days. Repeat HCG 11/29 was 100. Shayla Jason advised pt to repeat HCG Sunday 12/03.
Pt contacted me concerned about her situation.Denies any severe abdominal or pelvic pain. No bleeding. She expressed concern about having an ectopic and worried about risk for rupture.
PMH: PCOS/infertility, asthma, depression/anxiety, GERD, fatty liver, elevated cholesterol, prediabetes, BMI 32, reports PTSD after D&E 12/2023-does not like though of anesthesia due to anxiety/PTSD from D&E
PSH: section x2, D&E 12/2023
ALL: latex, macrobid
Meds: none
Sochx: former tobacco use, negative alcohol, neg recreational/illicit drug use
OBHx: 2 csections (first for NR FHT)
Famhx: Mother-diabetes, osteoporosis
ROS: does not add
PE: Appears comfortable, NAD. converses easily. Here with her . Seen by me in ER after labs and ultrasound are back.
Heart: regular rate
Pulm: respiratory rate normal
Abd: soft NDNT, no guarding, rebound, rigidity
pelvic exam deferred
Ext: no calf pain
Labs:
BHCG 142
blood type O pos
WBC 7.7 H/H: 13.9/40.5 plt 264
AST 23
ALT 28
Pelvic US:No sonographic evidence for gestational sac in endometrial canal. Small amount of fluid in endometrial canal. 1.4 cm round partially cystic and partially solid heterogeneous mass in the right ovary which does not appear to have enlarged
since 11/27/2024. Diagnostic possibilities are a collapsed corpus luteal cyst or a right ovarian ectopic . Images reviewed independently by me also.
Assessment:
1. of unknown location- patient is clinically stable.
2. Abnormal rise of HCG
3. Hx PCOS and infertility- this is a natural conception
4. Elevated BMI
Plan: Lengthy conversation with Bre and her regarding abnormal rises in HCG means this is not a viable, normal . Due to low HCG it is impossible to determine the location of the (intrauterine vs extrauterine/ectopic).
Explained I cannot rule out ectopic at this time. Ectopic is the most concerning and worrisome diagnosis due to risk of tubal rupture and hemorrhage. There are several options for management at this time:
1. methotrexate- benefits/risks/side effects/ alternatives reviewed.
2. D&E to send to path to look for chorionic villi. If present, confirms intrauterine location. HCGs would need to be followed after if + villi. Risk of surgery and discussed would need alternative/additional management (methotrexate vs surgery) if
no chorionic villi seen.
3. Diagnostic laparoscopy- benefits and risks/limitations reviewed. Explained with low hcg, even if there were an ectopic , cannot guarantee would be able to visualize location or treat on laparoscopy if very small. There are risks of
surgery to consider as well: infection , bleeding, injury to internal tissues/organs/structures. Would suspect low yield with laparoscopic approach given lack of change on US. Right adnexal cystic mass may be collapsed corpus luteal cyst. There is
no free fluid to suggest ectopic rupture.
Benefits, risks and alternatives of approaches reviewed. She is hoping to avoid surgery and is stable. I feel she is very reliable and motivated to follow this through to resolution. After discussion including benefits, risks and side effects of
each option, she has decided to have methotrexate therapy. Reviewed protocol.
Needs follow up HCG Quant on Monday 12/04 and again on 12/07/24. Explained if there is a drop of 15% in HCG from day 4 to 7can be followed with weekly hcg. If less than or =15% drop in hcg from day 4 to 7, would need second methotrexate dose.
Would need to then follow wkly once 15% decline until negative.
Advised to avoid strenuous activity, exercise, intercourse until resolved. Reviewed possible increased cramping day 4.
Needs to avoid direct sunlight, vinegar to to reactions from MTX.
Avoid folic acid supplementation- she already stopped her vitamin.
Advised to call /come to ER if dizziness, lightheadedness, near syncope or syncope, heavy bleeding, severe abdominal pains, call with any concerns.
Detailed verbal and written instructions given. Printed detailed patient instructions from [employer] date for ectopic . ER also printed instructions.
I will continue to follow patient for her hcgs.
Written rx for labs to be done stat [facility] 12/04 and 12/07 given.
She expressed understanding of instructions and follow up. Aware ectopic cannot be ruled out. Agrees to follow up as directed.
She expressed appreciation for outlining the plan and they feel comfortable with explanation and plan as above.
Time spent face to face counseling, coordination of care, documentation on day of visit was over 60min.
[2024-12-01] MEDS: METHOTREXATE 3.9 MG IM (17:00)
--- NOTE | 2024-12-01 17:12 | EDRN ---
Scanned methotrexate did not go through, as pop-up report related to background update and to contact IT if problem persists. Manually confirmed, with co-sign by Lynda LIANG, and order processed as administered.
== END 2024-12-01 17:00 | disposition home or self-care (01) ==
LOC: EMR 12:04
PROVIDERS: EMERGENCY PHYSICIAN Emergency Medicine; FAMILY PHYSICIAN Emergency Medicine; OTHER PHYSICIAN Obstetrics & Gynecology
DX: O00.90 Unspecified ectopic pregnancy without intrauterine pregnancy (principal); Z3A.00 Weeks of gestation of pregnancy not specified; Z87.891 Personal history of nicotine dependence
CPT/HCPCS: 99284; 96372; 76830; 76856; 80053; 84702; 85025; 86850; 86900; 86901; J9260

== ENCOUNTER → 2024-12-04 07:53 | Outpatient (REF) | payer OTHER, SELFPAY ==
[2024-12-04 09:02] LABS: Beta HCG Quantitative 159.51 mIU/ml
== END ==
LOC: REG 07:53
PROVIDERS: ATTENDING PHYSICIAN Obstetrics & Gynecology; FAMILY PHYSICIAN Emergency Medicine
DX: O26.891 Other specified pregnancy related conditions, first trimester (principal)
CPT/HCPCS: 36415; 84702

== ENCOUNTER → 2024-12-07 08:17 | Outpatient (REF) | payer OTHER, SELFPAY ==
[2024-12-07 09:22] LABS: Beta HCG Quantitative 129.43 mIU/ml
== END ==
LOC: REG 08:17
PROVIDERS: ATTENDING PHYSICIAN Obstetrics & Gynecology; FAMILY PHYSICIAN Emergency Medicine
DX: O26.899 Other specified pregnancy related conditions, unspecified trimester (principal)
CPT/HCPCS: 36415; 84702

== ENCOUNTER → 2024-12-14 09:01 | Outpatient (REF) | payer OTHER, SELFPAY ==
[2024-12-14 10:21] LABS: Beta HCG Quantitative 38.57 mIU/ml
== END ==
LOC: REG 09:01
PROVIDERS: ATTENDING PHYSICIAN Obstetrics & Gynecology
DX: O26.899 Other specified pregnancy related conditions, unspecified trimester (principal)
CPT/HCPCS: 36415; 84702

== ENCOUNTER → 2024-12-24 15:38 | Outpatient (REF) | payer OTHER, SELFPAY ==
[2024-12-24 16:42] LABS: Beta HCG Quantitative 7.67 mIU/ml
== END ==
LOC: REG 15:38
PROVIDERS: ATTENDING PHYSICIAN Obstetrics & Gynecology
DX: O26.899 Other specified pregnancy related conditions, unspecified trimester (principal)
CPT/HCPCS: 36415; 84702

== ENCOUNTER → 2025-04-11 09:11 | Outpatient (REF) | payer OTHER, SELFPAY | LOC: RCS 09:11 | PROVIDERS: ATTENDING PHYSICIAN Nurse Practitioner Family | DX: R00.2 Palpitations (principal) | CPT/HCPCS: 93225; 93226 ==

== ENCOUNTER 2025-05-16 15:56 | Emergency (ER) | payer OTHER, SELFPAY ==
[2025-05-16 16:04] VITALS: BP 138/93
[2025-05-16 16:24] LABS: % Basophils 0.3 % (0-2); % Eosinophils 1.6 % (0-6); % Immature Granulocytes 0.3 % (0-0.5); % Monocytes 4.9 % (1.7-9.3); % Neutrophils 75.9 % (42.2-75.2); Absolute Eosinophils 0.2 10^3/uL (0-0.7); Absolute Lymphocytes 1.7 10^3/uL (1.2-3.4); Absolute Monocytes 0.5 10^3/uL (0.1-0.6); Absolute Neutrophils 7.4 10^3/uL (1.4-6.5); Hematocrit 40.6 % (37.0-47.0); Hemoglobin 13.8 g/dL (12.0-16.0); Mean Corpuscular Hgb 29.8 pg (27.0-31.0); Mean Corpuscular Volume 87.7 fL (81.0-99.0); Mean Platelet Volume 9.2 fL (7.4-10.4); Nucleated Red Blood Cells % 0 %; Platelet Count 276 10^3/uL (130-400); Red Blood Cell Count 4.63 10^6/uL (4.20-5.40); Red Cell Dist. Width 12.1 % (11.5-14.5); White Blood Cell Count 9.7 10^3/uL (4.8-10.8)
[2025-05-16 16:38] LABS: HCG, Serum Qualitative Screen Negative
[2025-05-16 16:51] LABS: ALT (SGPT) 38 U/L (0-35); AST (SGOT) 27 U/L (14-36); Albumin 4.6 g/dl (3.5-5.0); Alkaline Phosphatase 57 U/L (38-126); Blood Urea Nitrogen 10 mg/dl (7-17); Carbon Dioxide 23 mmol/L (22-30); Chloride 109 mmol/L (98-107); Glucose 122 mg/dl (70-99); Potassium 4.1 mmol/L (3.5-5.1); Sodium 139 mmol/L (135-145); Total Bilirubin 0.4 mg/dl (0.2-1.3); Total Protein 7.4 g/dl (6.3-8.2); eGFR > 60.00
[2025-05-16 16:51] LABS: Troponin I < 0.012 ng/ml
[2025-05-16 17:11] LABS: TSH Reflex To Free T4 0.64 uIU/ml (0.47-4.68)
[2025-05-16 18:04] VITALS: BMI 32.9
[2025-05-16 18:05] VITALS: BP 127/87
--- NOTE | 2025-05-16 20:12 | ED.GENMED ---
History of Present Illness
General
Chief Complaint: Chest Pain
Time Seen by Provider: 05/16/25 18:42
History of Present Illness
History of Present Illness:
30-year-old female without significant past medical history presenting to the emergency department for palpitations. Patient reports symptoms have been ongoing for the past several days. Notes she previously had an issue with this several months
ago, had a Holter monitor, with no reported episodes. Symptoms have been constant. Denies any new supplements or medications. Denies any history of blood clots, recent surgery, recent travel or exogenous estrogen. Denies any abdominal pain.
Does note today that she felt some chest pressure which is unusual for her. Denies any personal history of cardiac disease or significant family history of heart disease. Denies additional acute medical complaints.
Past History
Past History
ED Past Medical History: Asthma, GERD, Hypercholesterolemia, Psychiatric (Anxiety, Depression), Other (ovarian cyst, Numbness arms and legs, Lyme, Anemia, ) and Other
ED Past Surgical History: (X 2) and Gynecological (D&C X 2)
Social History
Tobacco: Former smoker
Alcohol: Occasional
Drug: None
Personal: Single
Living: with family (Lives with her partner)
Employment: Employed (massage therapist)
Family History
Family History: Other (Mom has a history of kidney stones)
Phy Exam
Physical Exam
Physical Exam:
General: Well-appearing, no clinical signs of dehydration, nontoxic and in no acute distress
HEENT: protecting airway
Neck: appears supple
CV: Normal heart rate, regular rhythm, no evidence of cyanosis
Resp: No accessory muscle use, no increased work of breathing, lungs clear to auscultation bilaterally
Abd: Soft and non-distended, no tenderness to palpation
Extremities: No deformities, no swelling, no erythema, pulses and sensation intact
Neuro: alert, no focal neurologic deficit
: deferred
Rectal: deferred
Psych: Normal affect
Skin: Intact
Scores
Heart Score for Chest Pain Patients
STEMI patient?: No
History: Slightly or Non-Suspicious
ECG: Normal
Age: </= 45 years
Risk Factors: No Risk Factors
Troponin: </= Normal Limit
Heart Score for Chest Pain Patients: 0
Heart Score Risk: 2.5% MACE over next 6 weeks
Course
Orders/Labs/Results
Orders:
Orders
05/16/25 15:58
Electrocardiogram (*1) Urgent
Reason for Study: Chest Pain
EKG- Treatment ONCE
05/16/25 16:12
Test Result ONCE
05/16/25 16:16
Comprehensive Metabolic Panel Urgent
HCG, Serum Qualitative Screen Urgent
TSH Reflex To Free T4 Urgent
05/16/25 16:17
Complete Blood Count/With Diff Urgent
Troponin I Urgent
05/16/25 19:19
D-Dimer Urgent
Abnormal Lab Results
05/16/25 05/16/25
16:16 16:17
Absolute Neuts (auto) 7.4 H 10^3/uL
(1.4-6.5)
Neutrophils % 75.9 H %
(42.2-75.2)
Lymphocytes % 17.0 L %
(20.5-51.1)
Chloride 109 H mmol/L
(98-107)
Glucose 122 H mg/dl
(70-99)
ALT 38 H U/L
(0-35)
05/16/25 16:17
05/16/25 16:16
Vital Signs
Initial and Last Documented VS:
Initial Vital Signs
Temp Pulse Resp BP Pulse Ox
98.2 F 119 18 138/93 96
05/16/25 16:04 05/16/25 16:04 05/16/25 16:04 05/16/25 16:04 05/16/25 16:04
Last Documented Vital Signs
Temp Pulse Resp BP Pulse Ox
98.6 F 92 25 119/68 99
05/16/25 18:05 05/16/25 20:39 05/16/25 20:39 05/16/25 20:39 05/16/25 20:39
MDM/Problems Addressed
MDM/Problems Addressed:
30-year-old female presenting to the emergency department with palpitations. Vital signs arrival significant for tachycardia.
On exam patient is resting comfortably, no acute distress or discomfort. EKG obtained on arrival, nonischemic. Patient currently hemodynamically stable. No signs of arrhythmia on EKG. Plan for screening laboratory analysis in the setting of
chest pain and palpitations. Unable to satisfy PERC rule given presenting tachycardia. Overall low suspicion given ongoing issue. For this reason we will add D-dimer. Will also send electrolyte panel to ensure no electrolyte derangement. Will
continue to closely monitor.
20:30 - Patient's labs are unremarkable with undetectable troponin, normal dimer. Patient otherwise remained stable. At this time feel stable for discharge, however advised that she revisit with cardiology. Will provide information. Return
precautions discussed and patient verbalized understanding
*Pulse Oximetry
SaO2: 99
Oxygen Mode of Delivery: Room air
*EKG
Interpreted by ED Provider?: Yes
EKG Intrepretation Date: 05/16/25
EKG Intrepretation Time: 20:15
Interpretation: normal
Heart Rate: 112
Rate: tachycardiac
Rhythm: sinus
[place]: normal axis
Interval: normal interval
QRS Pattern: normal QRS
Ischemia: no ischemia
*Critical Care Note
Total Time (30-74mins, 75-104mins- exclusive of procedures): Not Applicable
ED Attending Note
-
Portions of this chart may have been created with voice recognition software.� Occasional wrong word or��sound alike� substitutions may have occurred due to the inherent limitations of voice recognition software.
Discharge Plan
Departure
Patient Disposition: Home (Routine Discharge)
Date of Disposition: 05/16/25
Time of Disposition: 20:27
Patient with high blood pressure during this ER visit?: No
Condition: Good
Discharge Problem:
Palpitations
Instructions: Palpitations - ED discharge instructions
Prescriptions:
No Action
acetaminophen 325 mg Tablet
650 mg PO SDS-Q4HPRN PRN (Reason: mild pain) Qty: 0 0RF
Referrals:
Luiz Garcia MD [Active, Cardiology]
UNKNOWN - PT DOES,NOT KNOW [Family Provider]
Activity Restrictions/Additional Instructions:
You were seen in the emergency department for palpitations
You were found to have reassuring laboratory analysis and EKG. We recommend that you follow-up with taxi truck driver for additional testing.
Please follow-up closely with your primary care physician.
Return to the emergency department for any worsening of your symptoms, or any development of chest pain, difficulty breathing, abdominal pain with persistent vomiting and inability to tolerate food or liquid by mouth (concern for dehydration),
weakness, headache or confusion, fever greater than 100.4, or any additional symptoms that are concerning to you.
Thank you for choosing [facility].
Interventions
Interventions:
*Risk Screen - Suicide Last Done: 05/16/25 18:05
*General Assessment Last Done: 05/16/25 18:05
*Neglect/Abuse Screening Last Done: 05/16/25 18:05
*ED- Fall Risk Assessment Last Done: 05/16/25 18:05
*ED COVID-19 Vaccine History Last Done: 05/16/25 16:08
*Nursing Disposition Last Done: 05/16/25 20:44
ED- Cardiac Assessment Last Done: 05/16/25 18:05
Discharge Date and Time
Discharge Date/Time: 05/16/25 20:46
Print Language: BRUNEIAN
[2025-05-16 20:23] LABS: D-Dimer < 0.27 ug/mlFEU (0.00-0.50)
[2025-05-16 20:39] VITALS: BP 119/68
== END 2025-05-16 20:46 | disposition home or self-care (01) ==
LOC: EMR 15:56
PROVIDERS: EMERGENCY PHYSICIAN Student in an Organized Health Care Education/Training Program
DX: R00.2 Palpitations (principal); J45.909 Unspecified asthma, uncomplicated; K21.9 Gastro-esophageal reflux disease without esophagitis; E78.00 Pure hypercholesterolemia, unspecified; Z87.891 Personal history of nicotine dependence
CPT/HCPCS: 99283; 80053; 84443; 84484; 84703; 85025; 85379; 93005

== ENCOUNTER 2025-06-05 18:57 | Emergency (ER) | payer OTHER, SELFPAY ==
[2025-06-05 19:09] VITALS: BP 119/82
[2025-06-05 19:59] LABS: Hematocrit 39.0 % (37.0-47.0); Hemoglobin 13.3 g/dL (12.0-16.0); Mean Corp Hgb Conc. 34.1 g/dL (33.0-37.0); Mean Corpuscular Volume 88.2 fL (81.0-99.0); Nucleated Red Blood Cells % 0 %; Platelet Count 260 10^3/uL (130-400); Red Cell Dist. Width 12.4 % (11.5-14.5)
[2025-06-05 20:14] LABS: HCG, Serum Qualitative Screen Negative
[2025-06-05 20:19] LABS: ALT (SGPT) 44 U/L (0-35); AST (SGOT) 26 U/L (14-36); Albumin 4.5 g/dl (3.5-5.0); Alkaline Phosphatase 51 U/L (38-126); Blood Urea Nitrogen 10 mg/dl (7-17); Calcium 9.7 mg/dl (8.4-10.2); Carbon Dioxide 26 mmol/L (22-30); Chloride 105 mmol/L (98-107); Estimated Creatinine Clearance 114 ml/min; Glucose 119 mg/dl (70-99); Potassium 4.4 mmol/L (3.5-5.1); Sodium 137 mmol/L (135-145); Total Protein 6.9 g/dl (6.3-8.2); eGFR > 60.00
[2025-06-05 20:26] LABS: Troponin I < 0.012 ng/ml
[2025-06-05 21:00] VITALS: BP 118/82
[2025-06-05 22:00] VITALS: BP 118/75
[2025-06-05 23:00] VITALS: BP 121/79
[2025-06-05] MEDS: CARAFATE SUSPENSION 1 GM PO (23:22)
[2025-06-06 00:05] LABS: D-Dimer < 0.27 ug/mlFEU (0.00-0.50)
--- NOTE | 2025-06-06 00:08 | ED.GENMED ---
History of Present Illness
General
Chief Complaint: Chest Pain
Source: patient
Exam Limitations: none
Time Seen by Provider: 06/05/25 22:29
Nursing documentation reviewed up to this point in time: agreed with
History of Present Illness
History of Present Illness:
Note:
CHIEF COMPLAINT(S)
Chest discomfort
HISTORY OF PRESENT ILLNESS
The patient is a 30-year-old female who presents with chest discomfort that began last night around 11 PM. She describes the sensation as feeling like she is being �sat on� in the chest, which sometimes worsens with deep breaths. She admits to some
shortness of breath, especially notable when she went for a walk outdoors. However, she also notes there are moments when she avoids deep breathing, yet still experiences discomfort. There have been no specific triggers identified such as exercise,
caffeine, or any dietary factors. She denies any attempts at alleviating symptoms with [id number] medications or other treatments.
The patient mentions having undergone cardiac evaluation with a explosives operator, including the use of a Holter monitor that indicated a 13% overall burden. Recent cardiac tests and a Holter monitor were conducted by a explosives operator Dr. Mann., Which
showed no significant abnormalities.
ADDITIONAL HISTORY OBTAINED FROM SOURCES OTHER THAN THE PATIENT
Per the cardiology reports, cardiac function appears to be within normal limits based on the previous evaluations, and a follow-up plan was suggested.
SOCIAL HISTORY
The patient admits to alcohol use, although sporadically and denies smoking and illegal drug use. She reports no regular exercise regimen.
REVIEW OF SYSTEMS
- Respiratory: Some shortness of breath, worsened with deep breathing.
- Cardiovascular: Chest discomfort described as pressure-like, worsened with deep breaths.
PHYSICAL EXAM
General: Alert, no acute distress.
Skin: Warm, dry.
Head: Normocephalic, atraumatic.
Neck: Supple, trachea midline.
Eye Ears, nose, mouth and throat: Oral mucosa moist.
Cardiovascular: Normal peripheral perfusion, No edema.
Respiratory: Respirations are non-labored.
Gastrointestinal: Abdomen nondistended
Back: Normal range of motion, Normal alignment.
Musculoskeletal: Normal range of motion, normal strength.
Neurological: Alert and oriented to person, place, time, and situation, No focal neurological deficit observed.
Psychiatric: Cooperative, appropriate mood & affect.
PLAN
1. A D-dimer blood test will be conducted to evaluate for possible blood clots.
2. Initiate treatment with a proton pump inhibitor, likely omeprazole, to address possible esophageal involvement.
3. If the D-dimer test is negative, additional imaging such as CT or MRI will be considered to rule out other causes of pain if clinically warranted.
DIFFERENTIAL DIAGNOSIS
The Differential Diagnosis includes, in no particular order and is not limited to:
1. Gastroesophageal reflux disease (GERD)
2. Costochondritis
3. Pulmonary embolism
4. Musculoskeletal pain
5. Panic attack/anxiety
6. Pericarditis
7. Coronary artery disease
8. Atypical chest pain
9. Aortic dissection
10. Pneumonia
Disposition:
SUMMARY OF ENCOUNTER
The patient, a 30-year-old female, was evaluated for palpitations and chest discomfort. Her D-dimer test result was negative, indicating no presence of blood clots. The chest examination appeared normal, and laboratory tests returned within normal
limits. Based on these findings, there was no immediate concern for acute cardiac or thrombotic issues.
DISPOSITION
The patient will be discharged.
PLAN
The patient is advised to follow up with cardiology for further evaluation and management of her symptoms.
PATIENT EDUCATION AND COUNSELING
The patient was informed about the findings of her tests and the plan for further follow-up with her explosives operator.
FOLLOW-UP INSTRUCTIONS
Please schedule a follow-up appointment with cardiology.
MEDICATION RECONCILIATION
Prescription medication was not discussed or administered at this time.
MEDICAL DECISION MAKING
- Complexity of Data Reviewed: Differential diagnosis includes potential conditions such as gastroesophageal reflux disease, costochondritis, pulmonary embolism, musculoskeletal pain, panic attack/anxiety, pericarditis, coronary artery disease,
atypical chest pain, aortic dissection, and pneumonia.
- Data:
Category 1: Lab tests reviewed included a negative D-dimer test.
Category 2: Clinical information was obtained from the patients record.
- Risk: Escalation of care, including admission, was considered but not deemed necessary due to normal lab results, negative D-dimer test, and normal chest examination. The patient is stable for outpatient management with cardiology follow-up.
DIAGNOSIS
1. Atypical chest pain (R07.89)
2. Palpitations (R00.2)
Past History
Past History
ED Past Medical History: Asthma, GERD, Hypercholesterolemia, Psychiatric (Anxiety, Depression), Other (ovarian cyst, Numbness arms and legs, Lyme, Anemia, ) and Other
ED Past Surgical History: (X 2) and Gynecological (D&C X 2)
Social History
Tobacco: Former smoker
Alcohol: Occasional
Drug: None
Personal: Single
Living: with family (Lives with her partner)
Employment: Employed (massage therapist)
Family History
Family History: Other (Mom has a history of kidney stones)
Phy Exam
Physical Exam
Physical Exam:
.
Scores
Heart Score for Chest Pain Patients
STEMI patient?: No
History: Slightly or Non-Suspicious
ECG: Normal
Age: </= 45 years
Risk Factors: No Risk Factors
Troponin: </= Normal Limit
Heart Score for Chest Pain Patients: 0
Heart Score Risk: 2.5% MACE over next 6 weeks
Course
Orders/Labs/Results
Orders:
Orders
06/05/25 18:58
EKG [Electrocardiogram (*1)] Urgent
Reason for Study: Chest Pain
EKG- Treatment ONCE
06/05/25 19:29
Test Result ONCE
06/05/25 19:45
Complete Blood Count/With Diff Urgent
Comprehensive Metabolic Panel Urgent
HCG, Serum Qualitative Screen Urgent
Comment: Notify provider if positive test present
NT-proBNP Urgent
Troponin I Urgent
06/05/25 22:26
CXR2 [CR Chest - 2 Views ] Urgent
Comment:
Reason For Exam: cp
06/05/25 23:13
Sucralfate Suspension [Carafate Suspension] 1 gm PO NOW STA
06/05/25 23:19
D-Dimer Urgent
Abnormal Lab Results
06/05/25
19:45
Glucose 119 H mg/dl
(70-99)
ALT 44 H U/L
(0-35)
06/05/25 19:45
06/05/25 19:45
Vital Signs
Initial and Last Documented VS:
Initial Vital Signs
Temp Pulse Resp BP Pulse Ox
98.9 F 79 18 119/82 99
06/05/25 19:09 06/05/25 19:09 06/05/25 19:09 06/05/25 19:09 06/05/25 19:09
Last Documented Vital Signs
Temp Pulse Resp BP Pulse Ox
98.9 F 88 17 116/81 97
06/05/25 19:09 06/06/25 00:15 06/06/25 00:10 06/06/25 00:10 06/06/25 00:15
*Pulse Oximetry
SaO2: 96
Oxygen Mode of Delivery: Room air
Patient hypoxic: no
*Critical Care Note
Total Time (30-74mins, 75-104mins- exclusive of procedures): Not Applicable
ED Attending Note
-
Portions of this chart may have been created with voice recognition software.� Occasional wrong word or��sound alike� substitutions may have occurred due to the inherent limitations of voice recognition software.
Discharge Plan
Departure
Patient Disposition: Home (Routine Discharge)
Date of Disposition: 06/06/25
Time of Disposition: 00:08
Patient with high blood pressure during this ER visit?: Yes
Condition: Good
Discharge Problem:
Palpitations, Chest pain
Instructions: Palpitations, Chest Pain PCP Follow Up
Prescriptions:
New
sucralfate [Carafate] 100 mg/mL suspension
10 ml PO QID Qty: 200 0RF
No Action
acetaminophen 325 mg Tablet
650 mg PO SDS-Q4HPRN PRN (Reason: mild pain) Qty: 0 0RF
Referrals:
Chrissy Kelly CRNP [Family Provider, Family Practice]
Nicolás Mann MD [Active, Cardiology]
Activity Restrictions/Additional Instructions:
Thank You for choosing [facility].
It was a pleasure meeting you and taking part in your care. We hope for your continued healing and wellness.
Please read discharge instructions in their entirety. However, they are for general education and may not describe your exact diagnosis at discharge. Information on your ER visit and medical conditions were discussed with you along with appropriate
follow up information...
If indicated, please take your medications as instructed and indicated on discharge paperwork.
Please schedule a follow up appointment as directed. Call to schedule an appointment
Please return to the emergency department with ANY change in, persisting, or worsening of symptoms. If any of your symptoms do not improve, or persist, or become more severe within 6-12 hours, please return to the emergency department for further
care.
Please return to the emergency department if you develop a headache, neck pain/stiffness, fever greater than 100.4F, chest pain, shortness of breath, persistent nausea, vomiting, slurred speech, difficulty walking, numbness/tingling, weakness, signs
of infection or any other symptoms that are worrisome to you.
If you have any questions or concerns please do not hesitate to call the Hospital at or E-mail me directly at [email or web address]
Interventions
Interventions:
*Risk Screen - Suicide Last Done: 06/05/25 19:09
*General Assessment Last Done: 06/05/25 21:02
*Neglect/Abuse Screening Last Done: 06/05/25 19:09
*ED- Fall Risk Assessment Last Done: 06/05/25 21:02
*ED COVID-19 Vaccine History Last Done: 06/05/25 21:02
*Nursing Disposition Last Done: 06/06/25 00:24
ED- Cardiac Assessment Last Done: 06/05/25 21:06
Discharge Date and Time
Discharge Date/Time: 06/06/25 00:24
Print Language: COMORAN
[2025-06-06 00:10] VITALS: BP 116/81
== END 2025-06-06 00:24 | disposition home or self-care (01) ==
LOC: EMR 18:57
PROVIDERS: Emergency Medicine; EMERGENCY PHYSICIAN Student in an Organized Health Care Education/Training Program; FAMILY PHYSICIAN Nurse Practitioner Family
DX: R00.2 Palpitations (principal); R07.89 Other chest pain; E78.00 Pure hypercholesterolemia, unspecified; K21.9 Gastro-esophageal reflux disease without esophagitis; J45.909 Unspecified asthma, uncomplicated; Z87.891 Personal history of nicotine dependence
CPT/HCPCS: 99283; 71046; 80053; 83880; 84484; 84703; 85025; 85379; 93005

== ENCOUNTER → 2025-06-11 10:57 | Outpatient (REF) | payer OTHER, SELFPAY | LOC: RCS 10:57 | PROVIDERS: ATTENDING PHYSICIAN Internal Medicine Cardiovascular Disease; FAMILY PHYSICIAN Nurse Practitioner Family | DX: R07.89 Other chest pain (principal) | CPT/HCPCS: 93017 ==

== ENCOUNTER → 2025-06-12 07:19 | Outpatient (REF) | payer OTHER, SELFPAY | LOC: RCS 07:19 | PROVIDERS: ATTENDING PHYSICIAN Internal Medicine Cardiovascular Disease; FAMILY PHYSICIAN Nurse Practitioner Family | DX: R06.02 Shortness of breath (principal); R07.89 Other chest pain | CPT/HCPCS: 93306 ==

== ENCOUNTER → 2025-06-13 07:58 | Outpatient (REF) | payer OTHER, SELFPAY | LOC: HWRAD 07:58 | PROVIDERS: ATTENDING PHYSICIAN Obstetrics & Gynecology; FAMILY PHYSICIAN Nurse Practitioner Family | DX: N92.0 Excessive and frequent menstruation with regular cycle (principal); R10.2 Pelvic and perineal pain | CPT/HCPCS: 76830; 76856 ==

== ENCOUNTER → 2025-10-16 13:53 | Outpatient (REF) | payer OTHER, SELFPAY | LOC: HWRCS 13:53 | PROVIDERS: ATTENDING PHYSICIAN Internal Medicine Cardiovascular Disease; FAMILY PHYSICIAN Nurse Practitioner Family | DX: I31.39 Other pericardial effusion (noninflammatory) (principal) | CPT/HCPCS: 93306 ==